=== PATIENT | female | born 1980 | race Caucasian/White ===

== ENCOUNTER 2019-11-15 11:54 | Outpatient (REF) | payer OTHER, SELFPAY ==
[2019-11-15 13:22] LABS: MANUAL DIFF FLAG NO
[2019-11-15 13:26] LABS: Basophils Absolute Auto 0.1 X10*3/uL (0.0-0.2); Basophils Percent Auto 0.7 % (0-2); Eosinophils Absolute Auto 0.1 X10*3/uL (0.0-0.4); Hematocrit 40.1 % (37-47); Hemoglobin 13.5 g/dl (12.0-16.0); Imm Gran Abs Auto 0.02 X10*3/uL (0.00-0.03); Imm Gran Pct Auto 0.3 % (0.0-0.4); Lymphocytes Absolute Auto 1.5 X10*3/uL (1.2-4.9); Lymphocytes Percent Auto 21.3 % (20-40); Mean Corpuscular HGB Conc 33.7 g/dl (31.0-35.0); Mean Corpuscular Hemoglobin 31.2 pg (27.0-33.0); Mean Corpuscular Volume 92.6 fL (80-98); Mean Platelet Volume 10.9 fL (9.4-12.3); Monocytes Absolute Auto 0.5 X10*3/uL (0.1-1.2); Monocytes Percent Auto 7.2 % (2-11); Neutrophils Absolute Auto 4.8 X10*3/uL (2.0-8.3); Neutrophils Percent Auto 69.5 % (45-73); Platelet Count 265 X10*3/uL (160-400); Red Blood Count 4.33 X10*6/uL (4.20-5.50); Red Cell Distribution Width 12.2 % (11.0-16.0); White Blood Count 6.8 X10*3/uL (4.8-10.8)
[2019-11-15 13:59] LABS: Alanine Aminotransferase 27 U/L (0-31); Albumin Level 4.3 g/dL (3.5-5.0); Alkaline Phosphatase 79 U/L (39-117); Anion Gap 11 (12-20); Aspartate Amino Transferase 21 U/L (5-31); Bilirubin Total 0.4 mg/dL (0.0-1.0); Blood Urea Nitrogen 13 mg/dL (9-16); Carbon Dioxide 27 mmol/L (22-29); Chloride 103 mmol/L (96-108); Cholesterol 149 mg/dL; Estimated Glomerular Filt Rate > 60; Glucose Fasting 94 mg/dL (60-99); HDL Cholesterol 52 mg/dL; LDL Cholesterol Calculated 85 mg/dl; Potassium 4.4 mmol/l (3.3-5.1); Sodium 137 mmol/L (135-145); Total Protein 6.9 g/dL (6.5-8.0); Triglycerides 60 mg/dL
[2019-11-15 14:02] LABS: Glucose Urine UA NEG (NEG); Leukocyte Esterase Urine NEG (NEG); Nitrite Urine NEG (NEG); Specific Gravity - Urine >= 1.030 (1.005-1.025); Urine Blood TRACE (NEG); Urine Ketones 5 MG/DL (NEG); Urine Protein TRACE MG/DL (NEG-TRACE)
[2019-11-15 14:04] LABS: Appearance Urine HAZY; Color Urine YELLOW
[2019-11-15 14:15] LABS: Amorphous Sediment Urine 1+ /LPF; Mucus Urine 3+ /LPF; Squamous Epithelial Cell Urine 2+ /LPF; WBC Urine 0 /HPF (0-4)
== END 2019-11-15 11:55 | disposition home or self-care (01) ==
LOC: HO.10HDL 11:54
PROVIDERS: Visit Provider Internal Medicine
DX: Z00.01 Encounter for general adult medical examination with abnormal findings (principal); Z13.9 Encounter for screening, unspecified; I10 Essential (primary) hypertension; E66.09 Other obesity due to excess calories; Z68.34 Body mass index [BMI] 34.0-34.9, adult; F33.9 Major depressive disorder, recurrent, unspecified; F41.1 Generalized anxiety disorder
CPT/HCPCS: 36415; 80053; 80061; 81001; 84443; 85025

== ENCOUNTER 2021-02-11 07:32 | Outpatient (REF) | payer OTHER, SELFPAY ==
[2021-02-11 11:49] LABS: Binax Now Covid-19 Ag Negative (Negative)
[2021-02-11 11:50] LABS: Binax Internal Control QC Valid
== END 2021-02-11 07:33 | disposition home or self-care (01) ==
LOC: HO.LAB 07:32
PROVIDERS: Visit Provider Internal Medicine
DX: Z20.822 Contact with and (suspected) exposure to COVID-19 (principal)
CPT/HCPCS: 36415; C9803

== ENCOUNTER 2021-02-24 01:19 | Emergency (ER) | payer OTHER, SELFPAY ==
--- NOTE | ~2021-02-24 | CT_ITS ---
EXAMINATION: CT ABDOMEN AND PELVIS WITHOUT CONTRAST CLINICAL INFORMATION: Right flank pain COMPARISON: 09/14/2009 TECHNIQUE: Multidetector volumetric imaging was performed from the superior aspect of the liver through the pubic symphysis. Sagittal and coronal reformatted images were obtained on the technologist's workstation. This CT examination was performed using dose optimization techniques as appropriate, variously including the following: *Automated exposure control *Adjustment of mA and/or kV according to patient size (this includes techniques or standardized protocols for targeted exams where dose is matched to indication/reason for exam; i.e. extremities or head) *Use of iterative reconstruction technique DLP: Not provided. FINDINGS: LUNG BASES: The visualized lung bases are unremarkable. LIVER, GALLBLADDER, AND BILIARY TREE: The liver is normal in size, shape, and attenuation. No focal hepatic lesion or biliary ductal dilatation is present. Cholecystectomy. PANCREAS: Unremarkable. SPLEEN: Unremarkable. ADRENAL GLANDS: Unremarkable. KIDNEYS AND URETERS: The kidneys are normal in size, shape, and attenuation. No hydronephrosis, hydroureter, or calculi seen. No perinephric stranding. BLADDER: Unremarkable. GASTROINTESTINAL TRACT: Status post Cal-en-Y gastric bypass. No dilated loops of bowel. No obstruction. No colonic wall thickening or acute inflammation. Moderate colonic stool burden. No free air or free fluid. Normal appendix. ABDOMINAL WALL: No significant hernia is appreciated. LYMPH NODES: Normal. VASCULAR: Unremarkable. PELVIC VISCERA: Anteverted uterus with IUD in place. No adnexal mass. OSSEOUS STRUCTURES: Unremarkable. CT/CT abdomen pelvis wo con IMPRESSION: No acute finding in the abdomen or pelvis. No inflammatory changes. No hydronephrosis or nephrolithiasis. Fleischner guidelines were followed.
[2021-02-24 01:24] VITALS: BP 143/72; PULSE 77; RESP 18; TEMP 36.8; O2SAT 100; BMI 41.5
[2021-02-24] MEDS: Ketorolac Tromethamine 30 MG/ML VIAL IVPUSH (03:14)
[2021-02-24] MEDS: 0.9 % Sodium Chloride 1,000 ML 999 ML IV (03:14)
[2021-02-24] MEDS: HYDROmorphone HCl 0.5 MG/0.5 ML SYRINGE IVPUSH (03:14)
[2021-02-24 03:22] LABS: MANUAL DIFF FLAG NO
[2021-02-24 03:24] LABS: Basophils Percent Auto 0.5 % (0-2); Eosinophils Absolute Auto 0.1 X10*3/uL (0.0-0.4); Eosinophils Percent Auto 1.4 % (0-4); Hematocrit 44.1 % (37.0-47.0); Hemoglobin 14.8 g/dl (12.0-16.0); Imm Gran Abs Auto 0.04 X10*3/uL (0.00-0.03); Imm Gran Pct Auto 0.5 % (0.0-0.4); Lymphocytes Absolute Auto 2.3 X10*3/uL (1.2-4.9); Lymphocytes Percent Auto 26.2 % (20-40); Mean Corpuscular HGB Conc 33.6 g/dl (31.0-35.0); Mean Corpuscular Hemoglobin 30.1 pg (27.0-33.0); Mean Corpuscular Volume 89.8 fL (80.0-98.0); Monocytes Absolute Auto 0.6 X10*3/uL (0.1-1.2); Monocytes Percent Auto 7.3 % (2-11); Neutrophils Absolute Auto 5.6 x10*3/uL (2.0-8.3); Neutrophils Percent Auto 64.1 % (45-73); Platelet Count 303 X10*3/uL (160-400); Red Blood Count 4.91 X10*6/uL (4.20-5.50); Red Cell Distribution Width 12.5 % (11.0-16.0); White Blood Count 8.6 X10*3/uL (4.8-10.8)
[2021-02-24 03:25] LABS: Appearance Urine CLEAR; Color Urine ORANGE; Glucose Urine UA 100 MG/DL (NEG); Leukocyte Esterase Urine NEG (NEG); Nitrite Urine POS (NEG); Specific Gravity - Urine 1.025 (1.005-1.025); UACC Culture Trigger YES; Urine Blood TRACE (NEG); Urine Ketones NEG (NEG); Urine Protein 1+ MG/DL (NEG-TRACE)
[2021-02-24 03:26] LABS: UPreg QC Valid YES; Urine Pregnancy NEGATIVE (NEGATIVE)
--- NOTE | 2021-02-24 03:26 | ED_ITS ---
HPI - General Adult General Chief complaint: Extremity Injury, Lower Stated complaint: R side weakness & pain post UTI treatment Time Seen by Provider: 02/24/21 02:45 History of Present Illness HPI narrative: Patient is a 40-year-old female presents today with having history of urinary tract infection now is having pain to the right flank area. Patient denies any bowel urinary incontinence. No history of kidney stone. No coughing or congestion or upper respiratory symptoms positive generalized malaise. Patient did receive her coronavirus vaccine. Patient from home. Pain is sharp nonradiating. No lower extremity pain. No bowel urinary incontinence. No focal weakness. Related Data Home Medications Medication Instructions Recorded Confirmed cholecalciferol (vitamin D3) 25 1,000 unit PO DAILY cap 11/19/19 06/09/20 mcg (1,000 unit) capsule zolpidem 12.5 mg tablet,extended 12.5 mg PO BEDTIME PRN 11/19/19 06/09/20 release,multiphase buspirone 10 mg tablet 10 mg PO DAILY tab 06/09/20 06/09/20 escitalopram oxalate 10 mg tablet 10 mg PO QAM 06/09/20 06/09/20 Previous Rx's Medication Instructions Recorded atenolol 25 mg tablet 25 mg PO DAILY #90 tab 09/21/20 lisinopril 10 mg tablet 10 mg PO DAILY #90 tab 09/21/20 phenazopyridine 200 mg tablet 200 mg PO TID 3 Days #9 tab 02/22/21 (Pyridium) sulfamethoxazole 800 1 tab PO BID 5 Days #10 tab 02/22/21 mg-trimethoprim 160 mg tablet (Bactrim DS) ibuprofen 400 mg tablet 400 mg PO Q6H PRN #20 tab 02/24/21 sulfamethoxazole 800 1 tab PO BID 5 Days #10 tab 02/24/21 mg-trimethoprim 160 mg tablet (Bactrim DS) Allergies Allergy/AdvReac Type Severity Reaction Status Date / Time No Known Allergies Allergy Verified 02/22/21 15:46 Review of Systems Review of Systems: Positive pain to the right flank area Yes all other systems are reviewed and are negative [facility] Past Medical History Attestation statement: The following information was validated with the patient. Medical History Anxiety, generalized Depression, major, recurrent Hypertension, essential IUD (intrauterine device) in place Obesity Surgical History H/O gastric bypass History of section History of colonoscopy Family History Family History Father HTN (hypertension) Hypothyroidism Diabetes mellitus Mother Colon cancer Maternal Grandfather Smoker Myocardial infarction Family/Other Ovarian cancer Sister Burn Social History Social History Alcohol intake: current Alcohol intake frequency: a few times a week Alcohol type: wine Patient Tobacco Use Status: Never used Tobacco Advance Directives: No Advance Directives Date on File: 11/15/19 Patient : No Physical Exam Vital Signs: Vital Signs: Last Vital Signs Temp 98.2 F 02/24/21 01:24 Pulse 77 02/24/21 01:24 Resp 18 02/24/21 01:24 BP 143/72 H 02/24/21 01:24 Pulse Ox 100 02/24/21 01:24 BMI result Body Mass Index 41.5 Appearance: Alert. Oriented X3. No acute distress. Eyes: Pupils equal, round and reactive to light. ENT: Pharynx normal. Neck: Normal inspection. Neck supple. No lymph nodes noted. No crepitus CVS: Normal heart rate and rhythm. Pulses normal. Normal S1 and S2 Respiratory: No respiratory distress. Breath sounds normal. No Wheezing. No rales Abdomen: Soft and nontender. No rigidity. No distention. good BS x4. No flank tenderness elicited on palpation. Skin: Skin warm and dry. Normal skin color. Normal skin turgor. Extremities: No lower extremity edema. Neurovascular intact to all extremities. No Lacerations. No Rash. Sensation in bilateral lower extremity intact. Neuro: Oriented X 3. No motor deficit. No sensory deficit. Moving all extermities. No slurred speech Medical Decision Making MDM Narrative Medical decision making narrative: Patient's electrolytes are normal. Lung function test is normal. Urine showed questionable infection likely partial treatment as patient has been on Bactrim for the last 2 days. Patient was given a prescription for 5 days worth of Bactrim. Question early pyelonephritis that is causing patient's symptoms and it is partially treated. A CT scan of the abdomen pelvis did not show any acute evidence of obstruction, abscess, perforation, kidney stones no diverticulitis. Patient's symptom improved. Will have patient continue Motrin for pain. Will have patient take 10 days worth of Bactrim. Close follow-up on an outpatient basis. Zofran for nausea. Patient's COVID test was negative, In stable condition. Lab Data Result diagrams: 02/24/21 03:10 02/24/21 03:10 Labs: Lab Results 02/24/21 02/24/21 02/24/21 Range/Units 03:10 03:10 03:10 WBC 8.6 (4.8-10.8) X10*3/uL RBC 4.91 (4.20-5.50) X10*6/uL Hgb 14.8 (12.0-16.0) g/dl Hct 44.1 (37.0-47.0) % MCV 89.8 (80.0-98.0) fL MCH 30.1 (27.0-33.0) pg MCHC 33.6 (31.0-35.0) g/dl RDW 12.5 (11.0-16.0) % Plt Count 303 (160-400) X10*3/uL MPV 10.0 (9.4-12.3) fL Immature Gran % (Auto) 0.5 H (0.0-0.4) % Neut % (Auto) 64.1 (45-73) % Lymph % (Auto) 26.2 (20-40) % [place] % (Auto) 7.3 (2-11) % Eos % (Auto) 1.4 (0-4) % Baso % (Auto) 0.5 (0-2) % Lymph # (Auto) 2.3 (1.2-4.9) X10*3/uL [place] # (Auto) 0.6 (0.1-1.2) X10*3/uL Eos # (Auto) 0.1 (0.0-0.4) X10*3/uL Baso # (Auto) 0.0 (0.0-0.2) X10*3/uL Abs Immat Gran (auto) 0.04 H (0.00-0.03) X10*3/uL Absolute Neuts (auto) 5.6 (2.0-8.3) x10*3/uL Absolute Nucleated RBC 0.000 (0.0-0.012) X10*3/uL Nucleated RBC % (auto) 0.0 (0.0-0.2) /100WBC Sodium 137 (135-145) mmol/L Potassium 4.2 (3.3-5.1) mmol/L Chloride 105 (96-108) mmol/L Carbon Dioxide 23 (22-29) mmol/L Anion Gap 13 (12-20) BUN 13 (9-16) mg/dL Creatinine 0.76 (0.5-1.4) mg/dL Estim Creat Clear Calc 106.5 Estimated GFR > 60 Random Glucose 93 (60-115) mg/dL Calcium 9.7 D (8.4-10.2) mg/dL Total Bilirubin 0.5 (0.0-1.0) mg/dL Direct Bilirubin 0.2 (0.0-0.5) mg/dL AST 12 D (5-31) U/L ALT 17 (0-31) U/L Alkaline Phosphatase 72 (39-117) U/L Total Protein 7.8 (6.5-8.0) g/dL Albumin 4.5 (3.5-5.0) g/dL Lipase 22 (8-78) U/L Urine Color Urine Appearance Urine pH (5.0-8.0) Ur Specific [place] (1.005-1.025) Urine Protein (NEG-TRACE) MG/DL Urine Glucose (UA) (NEG) MG/DL Urine Ketones (NEG) MG/DL Urine Blood (NEG) Urine Nitrite (NEG) Ur Leukocyte Esterase (NEG) Urine RBC (0) /HPF Urine WBC (0-4) /HPF Ur Squamous Epith Cells /LPF Amorphous Sediment /LPF Urine Bacteria /LPF Urine Mucus /LPF Urine Test (NEGATIVE) COVID-19 ([place]) Negative (Negative) COVID-19 Clin Com See Note 02/24/21 02/24/21 Range/Units 03:10 03:10 WBC (4.8-10.8) X10*3/uL RBC (4.20-5.50) X10*6/uL Hgb (12.0-16.0) g/dl Hct (37.0-47.0) % MCV (80.0-98.0) fL MCH (27.0-33.0) pg MCHC (31.0-35.0) g/dl RDW (11.0-16.0) % Plt Count (160-400) X10*3/uL MPV (9.4-12.3) fL Immature Gran % (Auto) (0.0-0.4) % Neut % (Auto) (45-73) % Lymph % (Auto) (20-40) % [place] % (Auto) (2-11) % Eos % (Auto) (0-4) % Baso % (Auto) (0-2) % Lymph # (Auto) (1.2-4.9) X10*3/uL [place] # (Auto) (0.1-1.2) X10*3/uL Eos # (Auto) (0.0-0.4) X10*3/uL Baso # (Auto) (0.0-0.2) X10*3/uL Abs Immat Gran (auto) (0.00-0.03) X10*3/uL Absolute Neuts (auto) (2.0-8.3) x10*3/uL Absolute Nucleated RBC (0.0-0.012) X10*3/uL Nucleated RBC % (auto) (0.0-0.2) /100WBC Sodium (135-145) mmol/L Potassium (3.3-5.1) mmol/L Chloride (96-108) mmol/L Carbon Dioxide (22-29) mmol/L Anion Gap (12-20) BUN (9-16) mg/dL Creatinine (0.5-1.4) mg/dL Estim Creat Clear Calc Estimated GFR Random Glucose (60-115) mg/dL Calcium (8.4-10.2) mg/dL Total Bilirubin (0.0-1.0) mg/dL Direct Bilirubin (0.0-0.5) mg/dL AST (5-31) U/L ALT (0-31) U/L Alkaline Phosphatase (39-117) U/L Total Protein (6.5-8.0) g/dL Albumin (3.5-5.0) g/dL Lipase (8-78) U/L Urine Color ORANGE A Urine Appearance CLEAR Urine pH 5.0 (5.0-8.0) Ur Specific [place] 1.025 (1.005-1.025) Urine Protein 1+ H (NEG-TRACE) MG/DL Urine Glucose (UA) 100 H (NEG) MG/DL Urine Ketones NEG (NEG) MG/DL Urine Blood TRACE (NEG) Urine Nitrite POS H (NEG) Ur Leukocyte Esterase NEG (NEG) Urine RBC 1-4 (0) /HPF Urine WBC 0-2 (0-4) /HPF Ur Squamous Epith Cells 2+ /LPF Amorphous Sediment TRACE /LPF Urine Bacteria 1+ /LPF Urine Mucus TRACE /LPF Urine Test NEGATIVE (NEGATIVE) COVID-19 ([place]) (Negative) COVID-19 Clin Com Discharge Plan Discharge Clinical Impression: Pyelonephritis Patient Disposition: Home, Self-Care Prescriptions: New sulfamethoxazole-trimethoprim [Bactrim DS] 800-160 mg tablet 1 tab PO BID 5 Days Qty: 10 RF: 0 ibuprofen 400 mg tablet 400 mg PO Q6H PRN (Reason: pain) Qty: 20 RF: 0 No Action lisinopril 10 mg tablet 10 mg PO DAILY Qty: 90 RF: 0 atenolol 25 mg tablet 25 mg PO DAILY Qty: 90 RF: 0 zolpidem 12.5 mg tablet,ext release multiphase 12.5 mg PO BEDTIME PRNRF: 0 cholecalciferol (vitamin D3) 25 mcg (1,000 unit) capsule 1,000 unit PO DAILY RF: 0 escitalopram oxalate 10 mg tablet 10 mg PO QAM RF: 0 buspirone 10 mg tablet 10 mg PO DAILY RF: 0 sulfamethoxazole-trimethoprim [Bactrim DS] 800-160 mg tablet 1 tab PO BID 5 Days Qty: 10 RF: 0 phenazopyridine [Pyridium] 200 mg tablet 200 mg PO TID 3 Days Qty: 9 RF: 0 Referrals: Gabi Varma MD [Primary Care Provider] - 2 days
[2021-02-24 03:34] LABS: Amorphous Sediment Urine TRACE /LPF; Bacteria Urine 1+ /LPF; Mucus Urine TRACE /LPF; Squamous Epithelial Cell Urine 2+ /LPF; UACC CULT YES; WBC Urine 0-2 /HPF (0-4)
[2021-02-24 03:42] LABS: COVID-19 Test Negative (Negative)
[2021-02-24 03:43] LABS: Alanine Aminotransferase 17 U/L (0-31); Albumin Level 4.5 g/dL (3.5-5.0); Alkaline Phosphatase 72 U/L (39-117); Anion Gap 13 (12-20); Aspartate Amino Transferase 12 U/L (5-31); Bilirubin Direct 0.2 mg/dL (0.0-0.5); Bilirubin Total 0.5 mg/dL (0.0-1.0); Blood Urea Nitrogen 13 mg/dL (9-16); Calcium 9.7 mg/dL (8.4-10.2); Carbon Dioxide 23 mmol/L (22-29); Chloride 105 mmol/L (96-108); Creatinine Clr Calc Pharmacy 106.5; Estimated Glomerular Filt Rate > 60; Glucose Random 93 mg/dL (60-115); Lipase 22 U/L (8-78); Potassium 4.2 mmol/L (3.3-5.1); Sodium 137 mmol/L (135-145); Total Protein 7.8 g/dL (6.5-8.0)
[2021-02-24 05:04] VITALS: BP 123/88; PULSE 76; RESP 18; O2SAT 98
== END 2021-02-24 05:58 | disposition home or self-care (01) ==
PROVIDERS: Emergency Provider Emergency Medicine Emergency Medical Services; PCP Internal Medicine
DX: N12 Tubulo-interstitial nephritis, not specified as acute or chronic (principal); R10.9 Unspecified abdominal pain; Z20.822 Contact with and (suspected) exposure to COVID-19; Z79.899 Other long term (current) drug therapy
CPT/HCPCS: 74176; 80048; 80076; 81001; 81025; 83690; 85025; 87086; 87635; 96361; 96374; 96375; 99284; J1170; J1885

== ENCOUNTER 2021-09-13 18:15 | Emergency (ER) | payer OTHER, SELFPAY ==
[2021-09-13 18:46] VITALS: BP 141/79; PULSE 85; RESP 16; TEMP 37.7; O2SAT 97; BMI 41.5
--- NOTE | 2021-09-14 00:03 | ED.SKABFB ---
HPI - Skin/Abscess/Foreign Bdy General Chief complaint: Urogenital-Female Stated complaint: pain in groin area and moving into leg Time Seen by Provider: 09/13/21 23:40 Source: patient Mode of arrival: ambulatory Limitations: no limitations History of Present Illness HPI narrative: Patient presents emergency department for evaluation of a lump to the left groin with pain and swelling x4 days. She states that she was swimming the ocean and noticed the lump later that night. Since earlier today the area has opened and has been draining yellow/clear fluid. It is very tender to touch. Denies fevers, chills. Denies any additional skin lesions or lumps. Denies prior history of MRSA. Related Data Home Medications Medication Instructions Recorded Confirmed cholecalciferol (vitamin D3) 25 1,000 unit PO DAILY 11/19/19 06/09/20 mcg (1,000 unit) capsule zolpidem 12.5 mg tablet,extended 12.5 mg PO BEDTIME PRN 11/19/19 06/09/20 release,multiphase buspirone 10 mg tablet 10 mg PO DAILY 06/09/20 06/09/20 escitalopram oxalate 10 mg tablet 10 mg PO QAM 06/09/20 06/09/20 Previous Rx's Medication Instructions Recorded atenolol 25 mg tablet 25 mg PO DAILY #90 tabs 09/21/20 lisinopril 10 mg tablet 10 mg PO DAILY #90 tabs 09/21/20 phenazopyridine 200 mg tablet 200 mg PO TID 3 days #9 tabs 02/22/21 (Pyridium) sulfamethoxazole 800 1 tab PO BID 5 days #10 tabs 02/22/21 mg-trimethoprim 160 mg tablet (Bactrim DS) ibuprofen 400 mg tablet 400 mg PO Q6H PRN pain #20 tabs 02/24/21 ondansetron 4 mg disintegrating 4 mg PO TID PRN nausea and 02/24/21 tablet vomiting 5 days #10 tabs sulfamethoxazole 800 1 tab PO BID 5 days #10 tabs 02/24/21 mg-trimethoprim 160 mg tablet (Bactrim DS) cephalexin 500 mg capsule 500 mg PO QID 7 days #28 caps 09/14/21 Allergies Allergy/AdvReac Type Severity Reaction Status Date / Time No Known Allergies Allergy Verified 09/13/21 18:50 Review of Systems Review of Systems: Constitutional :? Denies history of same, Denies any other sites involved, Denies IV drug use, Denies history of MRSA, Denies swollen glands, Denies injury, Denies Fever, Denies Chills, + Sig Pain, Denies Systemic symptoms Cardiovascular : No Chest Pain, No SOB Respiratory : No Dyspnea Gastrointestinal : No abdominal pain Musculoskeletal : No Joint Swelling Skin : + abscess with surrounding erythema, No skin laceration, No Foreign bodies, No spreading rash, Denies bites, Denies discharge, Neuro : No Weakness, No Numbness/tingling Yes all other systems are reviewed and are negative [facility] Past Medical History Attestation statement: The following information was validated with the patient. Source: old records reviewed Medical History Anxiety, generalized Depression, major, recurrent Hypertension, essential IUD (intrauterine device) in place Obesity Surgical History H/O gastric bypass History of section History of colonoscopy Family History Family History Father HTN (hypertension) Hypothyroidism Diabetes mellitus Mother Colon cancer Maternal Grandfather Smoker Myocardial infarction Family/Other Ovarian cancer Sister Burn Social History Social History Alcohol intake: current Alcohol intake frequency: a few times a week Alcohol type: wine Patient Tobacco Use Status: Never used Tobacco Advance Directives: Yes Advance Directives on File: Yes Advance Directives Date on File: 11/15/19 Physical Exam Vital Signs: Vital Signs: Last Vital Signs Temp 99.8 F 09/14/21 00:17 Pulse 76 09/14/21 00:17 Resp 17 09/14/21 00:17 BP 138/72 09/14/21 00:17 Pulse Ox 96 09/14/21 00:17 O2 Del Method 09/14/21 00:17 BMI result Body Mass Index 41.5 Appearance: Alert.?Oriented to person, place and time. No acute distress.?Normal affect. Eyes: Pupils equal, round and reactive to light.? ENT: Pharynx normal.?? Neck: Normal inspection.? Neck supple.?? CVS: Heart sounds normal. Normal heart rate and rhythm.? Pulses normal.?? Respiratory: No respiratory distress.? Lung sounds clear to auscultation bilaterally?? Abdomen: Soft and non-tender. Skin: Skin warm and dry.? Normal skin color.? Left groin with opened abscess weeping clear fluid,, surrounding erythema, warmth, induration Extremities: No lower extremity edema.? Neuro: Moves all extremities spontaneously. Sensation intact bilaterally. No motor deficits Ambulates with normal steady gait. Course Course Course Narrative: Patient is a 41-year-old female presents emergency department for evaluation of a painful lump to the left groin. History physical exam consistent with abscess, already open and draining. No systemic toxicity, and patient appears uncomfortable but vital signs are stable and in no apparent distress. There is surrounding cellulitis. Not consistent with necrotizing fasciitis, myositis, fourniers gangrene. No labs or imaging indicated at this time. Will discharge home with course of oral antibiotics and symptomatic treatment instructions. Discussed reasons to return to the emergency department, and follow-up with primary care provider. Patient agreeable with plan of care. MDM - Skin/Abscess/Foreign Bdy Medical Records Attestation: I reviewed the patient's medical records. Discharge Plan Discharge Clinical Impression: Abscess Patient Disposition: Home, Self-Care Instructions: Abscess (ED), Abscess Follow-up (ED) Additional Instructions: You have been given antibiotics cephalexin and doxycycline, please complete this entire course as prescribed. As we discussed, the area is going to likely continue to drain. You may apply warm moist compresses to the area a few times daily to aid in any additional drainage Try to keep the surrounding skin dry, by using a gauze to absorb the drainage. If you develop fevers, chills, severe worsening pain, redness, swelling this should be re-evaluated. Please contact your primary care provider to arrange for a follow-up visit within 2-3 days. Prescriptions: New cephalexin 500 mg capsule 500 mg PO QID 7 Days Qty: 28 0RF No Action lisinopril 10 mg tablet 10 mg PO DAILY Qty: 90 0RF atenolol 25 mg tablet 25 mg PO DAILY Qty: 90 0RF sulfamethoxazole-trimethoprim [Bactrim DS] 800-160 mg tablet 1 tab PO BID 5 Days Qty: 10 0RF ibuprofen 400 mg tablet 400 mg PO Q6H PRN (Reason: pain) Qty: 20 0RF ondansetron 4 mg tablet,disintegrating 4 mg PO TID PRN (Reason: nausea and vomiting) 5 Days Qty: 10 0RF zolpidem 12.5 mg tablet,ext release multiphase 12.5 mg PO BEDTIME PRN cholecalciferol (vitamin D3) 25 mcg (1,000 unit) capsule 1,000 unit PO DAILY Label Comments: 2 tablets escitalopram oxalate 10 mg tablet 10 mg PO QAM buspirone 10 mg tablet 10 mg PO DAILY sulfamethoxazole-trimethoprim [Bactrim DS] 800-160 mg tablet 1 tab PO BID 5 Days Qty: 10 0RF phenazopyridine [Pyridium] 200 mg tablet 200 mg PO TID 3 Days Qty: 9 0RF Stand Alone Forms: Work/School Release Interventions: ED Discharge Assessment Last Done: 09/14/21 00:18 Discharge Date/Time: 09/14/21 00:19
[2021-09-14] MEDS: cephALEXin 500 MG CAPSULE PO (00:14)
[2021-09-14 00:17] VITALS: BP 138/72; PULSE 76; RESP 17; TEMP 37.7; O2SAT 96
== END 2021-09-14 00:19 | disposition home or self-care (01) ==
PROVIDERS: Emergency Provider Emergency Medicine; PCP Internal Medicine
DX: L02.214 Cutaneous abscess of groin (principal); R10.32 Left lower quadrant pain; E66.9 Obesity, unspecified; Z68.41 Body mass index [BMI] 40.0-44.9, adult
CPT/HCPCS: 99282; 99283

== ENCOUNTER 2022-01-03 08:35 | Outpatient (REF) | payer OTHER, SELFPAY ==
[2022-01-03 11:16] LABS: MANUAL DIFF FLAG NO
[2022-01-03 11:44] LABS: Basophils Absolute Auto 0.1 X10*3/uL (0.0-0.2); Basophils Percent Auto 0.9 % (0-2); Eosinophils Absolute Auto 0.1 X10*3/uL (0.0-0.4); Eosinophils Percent Auto 1.5 % (0-4); Hematocrit 40.5 % (37.0-47.0); Hemoglobin 13.4 g/dl (12.0-16.0); Imm Gran Abs Auto 0.02 X10*3/uL (0.00-0.03); Imm Gran Pct Auto 0.3 % (0.0-0.4); Lymphocytes Absolute Auto 1.7 X10*3/uL (1.2-4.9); Mean Corpuscular HGB Conc 33.1 g/dl (31.0-35.0); Mean Corpuscular Hemoglobin 29.9 pg (27.0-33.0); Mean Corpuscular Volume 90.4 fL (80.0-98.0); Mean Platelet Volume 11.1 fL (9.4-12.3); Monocytes Absolute Auto 0.5 X10*3/uL (0.1-1.2); Monocytes Percent Auto 6.8 % (2-11); Neutrophils Absolute Auto 4.3 x10*3/uL (2.0-8.3); Neutrophils Percent Auto 64.5 % (45-73); Platelet Count 267 X10*3/uL (160-400); Red Blood Count 4.48 X10*6/uL (4.20-5.50); Red Cell Distribution Width 13.2 % (11.0-16.0); White Blood Count 6.6 X10*3/uL (4.8-10.8)
[2022-01-03 13:08] LABS: Alanine Aminotransferase 14 U/L (0-31); Albumin Level 4.3 g/dL (3.5-5.0); Alkaline Phosphatase 67 U/L (39-117); Anion Gap 12 (12-20); Aspartate Amino Transferase 12 U/L (5-31); Bilirubin Total 0.5 mg/dL (0.0-1.0); Blood Urea Nitrogen 14 mg/dL (9-16); Calcium 9.6 mg/dL (8.4-10.2); Carbon Dioxide 26 mmol/L (22-29); Chloride 102 mmol/L (96-108); Cholesterol 189 mg/dL; Estimated Glomerular Filt Rate > 60; Glucose Fasting 88 mg/dL (60-99); HDL Cholesterol 50 mg/dL; LDL Cholesterol Calculated 123 mg/dl; Potassium 4.7 mmol/L (3.3-5.1); Sodium 135 mmol/L (135-145); TSH reflex Free T4 0.99 uIU/mL (0.32-4.0); Total Protein 7.1 g/dL (6.5-8.0); Triglycerides 83 mg/dL
[2022-01-08 15:52] LABS: Vitamin D 25-OH, D2 <4 ng/mL; Vitamin D 25-OH, D3 32 ng/mL; Vitamin D 25-OH, Total 32 ng/mL (30-100)
== END 2022-01-03 08:36 | disposition home or self-care (01) ==
LOC: HO.10HDL 08:35
PROVIDERS: Visit Provider Internal Medicine
DX: I10 Essential (primary) hypertension (principal); F41.1 Generalized anxiety disorder; F33.9 Major depressive disorder, recurrent, unspecified; G47.9 Sleep disorder, unspecified; E66.09 Other obesity due to excess calories
CPT/HCPCS: 36415; 80053; 80061; 82306; 84443; 85025

== ENCOUNTER 2022-02-02 13:05 | Outpatient (REF) | payer OTHER, SELFPAY ==
--- NOTE | ~2022-02-02 | MM_ITS ---
EXAMINATION: MM SCREENING DIGITAL BREAST TOMOSYNTHESIS, BILATERAL CLINICAL INFORMATION: Screening. Asymptomatic. The lifetime risk of breast cancer based on the Tyrer-Cuzick Model is 12.3%. COMPARISON: Mammography: None TECHNIQUE: Digital breast tomosynthesis is performed in both the craniocaudal and mediolateral oblique views along with computer-aided detection (CAD). Synthesized 2D images are generated from the tomosynthesis. FINDINGS: There are scattered areas of fibroglandular density (ACR BI-RADS breast composition Category b). There are no significant masses, abnormal calcifications, or other abnormalities. MM/MM tomosynthesis screening BI IMPRESSION: No mammographic evidence of malignancy. ASSESSMENT: BI-RADS 1: Negative RECOMMENDATION: Routine annual mammography screening. This patient's information was entered into a reminder system with a target due date for their next mammogram.
== END 2022-02-02 13:06 | disposition home or self-care (01) ==
LOC: HO.MAMMO 13:05
PROVIDERS: Visit Provider Internal Medicine
DX: Z12.31 Encounter for screening mammogram for malignant neoplasm of breast (principal)
CPT/HCPCS: 77063; 77067

== ENCOUNTER → 2022-05-02 10:57 | Outpatient (BNVA) | payer OTHER, SELFPAY | PROVIDERS: PCP Internal Medicine; Referring Provider Internal Medicine; Visit Provider Physician Assistant | DX: Z13.89 Encounter for screening for other disorder (principal) ==

== ENCOUNTER 2022-07-13 06:55 | Day surgery (SDC) | payer OTHER, SELFPAY ==
[2022-07-11 14:23] VITALS: BMI 37.6
--- NOTE | 2022-07-12 14:06 | P.CONAN_ITS ---
Documented by User: Josi Martell NP 07/12/22 14:06 HPI - Anesthesia Eval Consult details Narrative: 42yo F for Colonoscopy PMFSH Active Problems Active Problems: All Active Problems (Updated 05/02/22 @ 11:26 by Donna Claire PA-C) Family history of GI tract cancer (Acute) Encounter for general adult medical examination with abnormal findings (Acute) Colon cancer screening (Acute) Obesity due to excess calories (Acute) Difficulty sleeping (Acute) Urinary tract infection (Acute) Foul smelling urine (Acute) IUD (intrauterine device) in place (Acute) Obesity (Acute) Depression, major, recurrent (Acute) Anxiety, generalized (Acute) Hypertension, essential (Acute) Dog bite (Acute) Past Medical History Medical History Anxiety, generalized Depression, major, recurrent Hypertension, essential IUD (intrauterine device) in place Obesity Family History Family History Father HTN (hypertension) Hypothyroidism Diabetes mellitus Mother Colon cancer Maternal Grandfather Smoker Myocardial infarction Family/Other Ovarian cancer Sister Burn Maternal Uncle Mental health disorder Surgical History Surgical History H/O gastric bypass History of section History of colonoscopy Social History Social History (Updated 05/02/22 @ 11:27 by Donna Claire PA-C) Household Members Other:: - 2 kids Housing: House Alcohol intake: current Alcohol intake frequency: a few times a week Alcohol type: wine Patient Tobacco Use Status: Never used Tobacco e-Cigarette/Vaping Use: Never Used Second Hand Smoke Exposure: No Use of substances other than those prescribed or required for medical reasons: No Are you DNR?: No Advance Directives: No Advance Directives Information Provided: Yes Advance Directives Date on File: 11/15/19 Patient : No (UCG pending) service: No Current occupational status: unemployed 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 Cognitive needs: No Hearing needs: No Vision needs: No Meds Allergies Allergy/AdvReac Type Severity Reaction Status Date / Time No Known Allergies Allergy Verified 05/02/22 11:10 Home Medications Medication Instructions Recorded Confirmed Last Taken Type cholecalciferol (vitamin D3) 25 1,000 unit PO DAILY 11/19/19 05/02/22 Unknown History mcg (1,000 unit) capsule zolpidem 12.5 mg tablet,extended 12.5 mg PO BEDTIME PRN 11/19/19 05/02/22 Unknown History release,multiphase escitalopram oxalate 20 mg tablet 20 mg PO QAM 11/19/21 05/02/22 Unknown History methylphenidate HCl 18 mg 18 mg PO QAM 11/19/21 05/02/22 Unknown History tablet,extended release 24 hr trazodone 300 mg tablet 150 - 300 mg PO BEDTIME 11/19/21 05/02/22 Unknown History Exam Exam Date and Time: July 12, 2022 1406 Height,Weight and Vital Signs: Height 5 ft 1 in Weight 90.265 kg Assessment and Plan Assessment Anesthesia Assessment: Chart Reviewed Documented by User: Kiley Oliveira MD 07/13/22 08:07 [facility] Past Medical History Medical History Anxiety, generalized Depression, major, recurrent Hypertension, essential IUD (intrauterine device) in place Obesity Family History Family History Father HTN (hypertension) Hypothyroidism Diabetes mellitus Mother Colon cancer Maternal Grandfather Smoker Myocardial infarction Family/Other Ovarian cancer Sister Burn Maternal Uncle Mental health disorder Family history of problems with anesthesia: No Surgical History Surgical History H/O gastric bypass History of section History of colonoscopy History of Problems with Anesthesia: No Social History Social History (Updated 05/02/22 @ 11:27 by Donna Claire PA-C) Household Members Other:: - 2 kids Housing: House Alcohol intake: current Alcohol intake frequency: a few times a week Alcohol type: wine Patient Tobacco Use Status: Never used Tobacco e-Cigarette/Vaping Use: Never Used Second Hand Smoke Exposure: No Use of substances other than those prescribed or required for medical reasons: No Are you DNR?: No Advance Directives: No Advance Directives Information Provided: Yes Advance Directives Date on File: 11/15/19 Patient : No (UCG pending) service: No Current occupational status: unemployed 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 Cognitive needs: No Hearing needs: No Vision needs: No Meds Allergies Allergy/AdvReac Type Severity Reaction Status Date / Time No Known Allergies Allergy Verified 05/02/22 11:10 Home Medications Medication Instructions Recorded Confirmed Last Taken Type cholecalciferol (vitamin D3) 25 1,000 unit PO DAILY 11/19/19 05/02/22 Unknown History mcg (1,000 unit) capsule zolpidem 12.5 mg tablet,extended 12.5 mg PO BEDTIME PRN 11/19/19 05/02/22 Unknown History release,multiphase escitalopram oxalate 20 mg tablet 20 mg PO QAM 11/19/21 05/02/22 Unknown History methylphenidate HCl 18 mg 18 mg PO QAM 11/19/21 05/02/22 Unknown History tablet,extended release 24 hr trazodone 300 mg tablet 150 - 300 mg PO BEDTIME 11/19/21 05/02/22 Unknown History Exam Airway Mallampati Class: II (missing multiple teeth, nothing loose) TM Dist: >3cm Neck ROM: Full Heart: rrr Lungs: cta Assessment and Plan Assessment Anesthesia Assessment: Anesthesia Plan Discussed Final Anesthetic Review Family History of Problems with Anesthesia: No History of Problems with Anesthesia: No NPO: Yes ASA Class: III Final Preanesthetic Review: No Changes in Pt Med Stat, Meds/Allgs Chart Reviewed and Consent Obtained/Reviewed Patient Risk: Intermediate Procedure Risk: Intermediate Anesthetic Plan Anesthetic Plan: MAC: Disposition: Standard PACU
[2022-07-13 07:17] LABS: UPreg QC Valid YES; Urine Pregnancy NEGATIVE (NEGATIVE)
[2022-07-13 07:18] VITALS: BMI 38.7
[2022-07-13 07:27] VITALS: BP 132/83; PULSE 70; RESP 16; O2SAT 98
[2022-07-13] MEDS: Lactated Ringers 1,000 ML 100 ML IVCONT (07:43)
--- NOTE | 2022-07-13 08:17 | MHC.SHP ---
Pre-Procedural Eval Section A Date of Service: 07/13/22 Section B Chief Complaint: screening Details of Present Illness: FH of CRC Relevant Family History (Specify if Yes): Yes Relevant Social History: None Present Medications: see Short Stay Collaborative assessment Medical History: Significant History (Anxiety, generalized Depression, major, recurrent Hypertension, essential IUD (intrauterine device) in place Obesity) History of Previous Operations: Relevant previous surgery/procedure and date(s) (H/O gastric bypass History of section History of colonoscopy) Allergies: Allergies Allergy/AdvReac Type Severity Reaction Status Date / Time No Known Allergies Allergy Verified 05/02/22 11:10 Review of Systems Sugical H&P ROS: Negative: Constitution, Cardiovascular, Respiratory, Neurological, Psychiatric, Hem-Onc, Allergic/Immunologic, Gastrointestinal, Genitourinary, Musculoskeletal, Integumentary, Endocrine and Eyes/Ears/Nose/Throat Exam Surgical H&P Exam: Normal: HEENT, Normal: Heart, Normal: Lungs, Normal: Extremities, Normal: Abdomen, Normal: Skin and Normal: Neurological Plan Diagnosis/Plan: Unchanged I have reviewed the history and physical and performed a pertinent physical examination on my patient. No changes have occurred unless specified. Time Spent With Patient Time: Total time managing care of this patient today ____ minutes.
--- NOTE | 2022-07-13 08:19 | W.PM.OPN ---
Operative Note Operative Note Date of Service: 07/13/22 Narrative: Operative Information Procedure Description: Colonoscopy Indication: screening Anesthesia: MAC COLONOSCOPY Instrument: Olympus variable stiffness pediatric scope 190L Colonoscopy Monitoring: Vital signs and clinical assessment, continuous EKG monitoring, Pulse oximetry, Carbon Dioxide monitoring and blood pressure monitoring were done throughout the procedure. Colon withdrawal time was 7 minutes. Procedure: The patient was placed in the left lateral decubitis position and pre-procedure medications were administered. After a digital rectal examination of the ano-rectum, the video colonoscope was inserted into the rectum and advanced through the colon to the cecum/TI. The colonoscope was slowly withdrawn in a retrograde panoramic fashion and the colon mucosa was carefully examined including a retroflexed view of the rectum. Findings and interventions are described below. Procedure Difficulty: easy Findings: Terminal Ileum-normal Cecum:normal Ascending Colon: 5-7 mm sessile polyp removed with cold snare Transverse Colon -normal Descending Colon:normal Sigmoid Colon: normal Rectum: Retroflexion with small internal hemorrhoids, grade I Anorectum - normal Colon preparation: [place] Bowel Preparation Scale Right colon; 2 Transverse colon: 2 Left colon; 2 (0 = Unprepared colon segment with mucosa not seen due to solid stool that cannot be cleared. 1 = Portion of mucosa of the colon segment seen, but other areas of the colon segment not well seen due to staining, residual stool and/or opaque liquid. 2 = Minor amount of residual staining, small fragments of stool and/or opaque liquid, but mucosa of colon segment seen well. 3 = Entire mucosa of colon segment seen well with no residual staining, small fragments of stool or opaque liquid) Impression and Post Procedure Diagnosis: polyp internal hemorrhoids Plan: High fiber diet leaflet Avoid straining at stool, epsom salts and sitz bath, anusol supps or cream Repeat Colonoscopy in 5 years due to Fh and polyp today or earlier if clinically indicated Above findings were reviewed with the patient and relevant handouts were provided if indicated.
[2022-07-13 08:47] VITALS: BP 108/63; PULSE 92; RESP 16; TEMP 37; O2SAT 98
[2022-07-13 09:02] VITALS: BP 120/72; PULSE 66; RESP 16; O2SAT 98
[2022-07-13 09:17] VITALS: BP 122/72; PULSE 62; RESP 16; TEMP 37; O2SAT 98
== END 2022-07-13 10:05 | disposition home or self-care (01) ==
PROVIDERS: Nurse Practitioner; PCP Internal Medicine; Visit Provider Internal Medicine Gastroenterology
PROC: 0DJD8ZZ Inspection of Lower Intestinal Tract, Via Natural or Artificial Opening Endoscopic (ICD-10-PCS; CPT 45378; principal; 2022-07-13 08:30)
DX: Z12.11 Encounter for screening for malignant neoplasm of colon (principal); Z80.0 Family history of malignant neoplasm of digestive organs; D12.2 Benign neoplasm of ascending colon; K64.0 First degree hemorrhoids; I10 Essential (primary) hypertension; F33.9 Major depressive disorder, recurrent, unspecified; F41.1 Generalized anxiety disorder; E66.9 Obesity, unspecified; Z68.37 Body mass index [BMI] 37.0-37.9, adult; Z79.899 Other long term (current) drug therapy; Z98.84 Bariatric surgery status; Z97.5 Presence of (intrauterine) contraceptive device
CPT/HCPCS: 45385; 81025; 88305

== ENCOUNTER 2022-07-21 08:03 | Outpatient (REF) | payer OTHER, SELFPAY ==
[2022-07-21 11:17] LABS: Alanine Aminotransferase 17 U/L (0-31); Albumin Level 4.3 g/dL (3.5-5.0); Alkaline Phosphatase 80 U/L (39-117); Anion Gap 14 (12-20); Aspartate Amino Transferase 16 U/L (5-31); Bilirubin Total 0.8 mg/dL (0.0-1.0); Blood Urea Nitrogen 8 mg/dL (9-16); Calcium 9.4 mg/dL (8.4-10.2); Carbon Dioxide 25 mmol/L (22-29); Chloride 103 mmol/L (96-108); Estimated Glomerular Filt Rate > 60; Glucose Random 90 mg/dL (60-115); Potassium 4.1 mmol/L (3.3-5.1); Sodium 138 mmol/L (135-145); Total Protein 7.4 g/dL (6.5-8.0)
== END 2022-07-21 08:04 | disposition home or self-care (01) ==
LOC: HO.10HDL 08:03
PROVIDERS: Visit Provider Internal Medicine
DX: I10 Essential (primary) hypertension (principal)
CPT/HCPCS: 36415; 80053

== ENCOUNTER → 2022-07-25 13:28 | Outpatient (BNVA) | payer OTHER, SELFPAY | PROVIDERS: PCP Internal Medicine; Visit Provider Physician Assistant ==

== ENCOUNTER 2023-01-20 10:47 | Outpatient (AMB) | payer OTHER, SELFPAY ==
[2023-01-20 10:52] VITALS: BP 134/86; PULSE 93; O2SAT 99; BMI 36.2
--- NOTE | 2023-01-20 10:52 | MHC.PC.OV ---
Vital Signs 01/20/23 10:52 Height 5 ft 1 in Weight 191 lb 6 oz BMI 36.2 BP 134/86 Blood Pressure Location Rt brachial Position Sitting Pulse 93 Pulse Source Pulse Oximeter Pulse Oximetry (%) 99 Oxygen Delivery Method Room Air Intake Visit Reasons: Annual PE Allergies No Known Allergies Allergy (Verified 01/20/23 10:52) Medication List - Last Reconciled 01/20/23 by Gabi Varma MD atenolol 25 mg PO DAILY cholecalciferol (vitamin D3) 1,000 units PO DAILY fluoxetine 20 mg PO DAILY lisinopril 10 mg PO DAILY methylphenidate HCl ER 18 mg PO QAM quetiapine 25 mg PO BEDTIME zolpidem ER 12.5 mg PO BEDTIME PRN Tobacco use date assessed: 07/22/22 Dental Screening Dental Screen Date: 01/20/23 Did you have a dental visit in the last 12 months?: Yes Did you have a dental problem in the last 6 months where you did not have access to dental care?: No Was dental information given to patient?: Patient has dentist HPI Annual PE HPI Details Patient is a 42-year-old female came in today for physical examination Mammogram appointment is coming up Patient have [facility], she has Mirena Blood pressure is stable, patient is on atenolol 25 mg and lisinopril 10 mg, tolerating medications Blood test is due order placed, order also placed for next time Patient will return in 6 months for follow-up [facility]LY [facility], [facility] Medical History IUD (intrauterine device) in place Obesity Depression, major, recurrent Anxiety, generalized Hypertension, essential Surgical History History of colonoscopy History of section H/O gastric bypass Family History Father HTN (hypertension) Hypothyroidism Diabetes mellitus Mother Colon cancer Maternal Grandfather Smoker Myocardial infarction Family/Other Ovarian cancer Sister Burn Maternal Uncle Mental health disorder Social History Household Members Other:: - 2 kids Housing: House Alcohol intake: current Alcohol intake frequency: a few times a week Alcohol type: wine Patient Tobacco Use Status: Never used Tobacco e-Cigarette/Vaping Use: Never Used Second Hand Smoke Exposure: No Advance Directives Date on File: 11/15/19 service: No Current occupational status: unemployed 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 1. Little interest or pleasure in doing things: more than half the days 2. Feeling down, depressed, or hopeless: not at all 3. Trouble falling or staying asleep, or sleeping too much: nearly every day 4. Feeling tired or having little energy: more than half the days 5. Poor appetite or overeating: not at all 6. Feeling bad about yourself - or that you are a failure or have let yourself or your family down: not at all 7. Trouble concentrating on things, such as reading the newspaper or watching television: more than half the days 8. Moving or speaking so slowly that other people could have noticed. Or the opposite - being so fidgety or restless that you have been moving around a lot more than usual: not at all 9. Thoughts that you would be better off or of hurting yourself in some way: not at all Total score: 9 Depression Screening Interpretation: Positive Depression Screening Follow-up: Existing condition and In treatment Depression Screening Done: Yes 25982 - PHQ-9 Billing: Yes Source: Developed by Drs. Bernardino White, Hitesh Callahan and colleagues, with an educational shashank from [employer]. Thrive Questionnaire Date Thrive assessed: 11/19/21 AUDIT C Alcohol Use Questionnaire (AUDIT-C) 1. How often do you have a drink containing alcohol?: Monthly or less 2. How many drinks containing alcohol do you have on a typical day when you are drinking?: 1 or 2 3. How often do you have six or more drinks on one occasion?: Never Total Score: 1 Score Reviewed/Action Taken: Yes MELVA-7 AMB Questionnaire MELVA-7 Date MELVA - 7 assessed: 11/19/21 Source: Developed by Drs. Bernardino White, Hitesh Callahan and colleagues, with an educational shashank from [employer] Review of Systems Const Denies chills, Denies fever(s) and Denies headache(s) Eyes Denies blurry vision ENT Denies headache(s), Denies nasal discharge, Denies nasal obstruction, Denies odynophagia and Denies sinus pain Card Denies chest pain at rest and Denies chest pain with activity Resp Denies cough and Denies hemoptysis GI Denies diarrhea, Denies odynophagia, Denies vomiting and Denies hematemesis Reports as per HPI Musc Denies abnormal gait Skin/Breast Reports as per HPI Neuro Denies Neuro-related abnormal movements, Denies Abnormal speech present, Denies abnormal gait, Denies headache(s) and Denies Sensory deficit (Neuro) Psych Denies mood swings and Denies paranoia Endo Reports as per HPI Donta/Lymph Reports as per HPI Aller/Immun Reports as per HPI Physical exam (Primary Care) Vital Signs: Last Vital Signs Pulse 93 01/20/23 10:52 BP 134/86 01/20/23 10:52 Pulse Ox 99 01/20/23 10:52 Oxygen Delivery Method Room Air 01/20/23 10:52 BMI result Body Mass Index 36.2 Tobacco/Smoking Status: Tobacco use Status Tobacco use date assessed 07/22/22 01/20/23 10:54 Patient Tobacco Use Status Never used Tobacco 01/20/23 10:54 e-Cigarette/Vaping Use Never Used 01/20/23 10:54 PHQ-9: PHQ-9 Score PHQ-9: Total score 9 01/20/23 15:21 Depression Screening Interpretation: Positive Depression Screening Follow-up: Existing condition and In treatment Thrive Assessment: Date of Thrive Assessment Date Thrive assessed 11/19/21 01/20/23 10:54 Const General: cooperative, comfortable and no acute distress Orientation/consciousness: patient oriented x3 HENMT Head: Yes normocephalic and Yes atraumatic Eyes General: appearance normal, both eyes and all related structures Pupils: Equal, round and reactive pupils present EOM: EOMs intact bilaterally Neck Neck: Yes supple and No lymphadenopathy Thyroid: Thyroid normal Lymphatic: no lymphadenopathy noted Chest Breast/axilla palpation: normal palpation of the breasts Resp Effort & Inspection: normal respiratory effort and able to speak in complete sentences Auscultation: clear to auscultation bilaterally Cardio Heart sounds: S1 normal heart sound present and S2 normal heart sound present GI Palpation (GI): Soft to palpation and nontender Auscultation: normal bowel sounds General: Yes no CVA tenderness Back/Spine/Pelvis Back: no CVA tenderness Skin General skin exam: elasticity normal and turgor normal Neuro General: patient oriented x3 and gait normal Cranial nerves: Yes Equal, round and reactive pupils present Speech: No Abnormal speech present Sensory Exam: No Sensory deficit (Neuro) Coordination: tandem gait normal and Romberg test negative Extrem General: Yes normal exam except as noted and No edema Assessment and Plan Assessment & Plan (1) Depression, major, recurrent: Code(s): F33.9 - Major depressive disorder, recurrent, unspecified Qualifiers: Active/Remission status: in partial remission Qualified Code(s): F33.41 - Major depressive disorder, recurrent, in partial remission (2) Anxiety, generalized: Code(s): F41.1 - Generalized anxiety disorder (3) Hypertension, essential: Code(s): I10 - Essential (primary) hypertension (4) Obesity due to excess calories: Code(s): E66.09 - Other obesity due to excess calories Qualifiers: Body mass index: BMI 36.0-36.9 Obesity classification: adult class 2 (BMI 35 - 39.9) Serious obesity comorbidity presence: with serious comorbidity Qualified Code(s): E66.01 - Morbid (severe) obesity due to excess calories; Z68.36 - Body mass index [BMI] 36.0-36.9, adult Plan Patient is a 42-year-old female came in today for physical examination Mammogram appointment is coming up Patient have [facility], she has Mirena Blood pressure is stable, patient is on atenolol 25 mg and lisinopril 10 mg, tolerating medications Blood test is due order placed, order also placed for next time Patient will return in 6 months for follow-up Orders: Orders Lipid Panel Today E66.09 - Other obesity due to excess calories, F33.9 - Major depressive disorder, recurrent, unspecified, F41.1 - Generalized anxiety disorder, I10 - Essential (primary) hypertension Complete Blood Count Auto Diff Today E66.09 - Other obesity due to excess calories, F33.9 - Major depressive disorder, recurrent, unspecified, F41.1 - Generalized anxiety disorder, I10 - Essential (primary) hypertension Comprehensive [place]. Panel Fast Today E66.09 - Other obesity due to excess calories, F33.9 - Major depressive disorder, recurrent, unspecified, F41.1 - Generalized anxiety disorder, I10 - Essential (primary) hypertension Complete Blood Count Auto Diff 6 Months E66.09 - Other obesity due to excess calories, F33.9 - Major depressive disorder, recurrent, unspecified, F41.1 - Generalized anxiety disorder, I10 - Essential (primary) hypertension Comprehensive [place]. Panel Fast 6 Months E66.09 - Other obesity due to excess calories, F33.9 - Major depressive disorder, recurrent, unspecified, F41.1 - Generalized anxiety disorder, I10 - Essential (primary) hypertension Lipid Panel 6 Months E66.09 - Other obesity due to excess calories, F33.9 - Major depressive disorder, recurrent, unspecified, F41.1 - Generalized anxiety disorder, I10 - Essential (primary) hypertension Medications: Refilled lisinopril 10 mg PO DAILY 90 tabs 1RF Coding Level of Care Code Est Pt Prev Care 40-64y(62479) Diagnoses Recurrent major depressive disorder, in partial remission F33.41 Active/Remission status: in partial remission Anxiety, generalized F41.1 Hypertension, essential I10 Class 2 severe obesity due to excess calories with serious comorbidity and body mass index (BMI) of 36.0 to 36.9 in adult E66.01; Z68.36 Body mass index: BMI 36.0-36.9 Obesity classification: adult class 2 (BMI 35 - 39.9) Serious obesity comorbidity presence: with serious comorbidity
== END 2023-01-20 11:09 | disposition home or self-care (01) ==
PROVIDERS: Visit Provider Internal Medicine
DX: Z00.00 Encounter for general adult medical examination without abnormal findings (principal); F33.41 Major depressive disorder, recurrent, in partial remission; E66.01 Morbid (severe) obesity due to excess calories; Z68.36 Body mass index [BMI] 36.0-36.9, adult; F41.1 Generalized anxiety disorder; I10 Essential (primary) hypertension
CPT/HCPCS: 99396

== ENCOUNTER 2023-02-07 12:39 | Outpatient (REF) | payer OTHER, SELFPAY ==
--- NOTE | ~2023-02-07 | MM_ITS ---
EXAMINATION: MM SCREENING DIGITAL BREAST TOMOSYNTHESIS, BILATERAL CLINICAL INFORMATION: Screening. Asymptomatic. COMPARISON: Mammography: 02/02/2022. TECHNIQUE: Digital breast tomosynthesis is performed in both the craniocaudal and mediolateral oblique views along with computer-aided detection (CAD). Synthesized 2D images are generated from the tomosynthesis. FINDINGS: There are scattered areas of fibroglandular density (ACR BI-RADS breast composition Category b). There are no suspicious masses, suspicious grouped calcifications, or areas of architectural distortion in either breast. The parenchymal pattern is stable from prior exams. No skin or axillary abnormality. MM/MM tomosynthesis screening BI IMPRESSION: No mammographic evidence of malignancy. ASSESSMENT: BI-RADS BI-RADS 1 - Negative RECOMMENDATION: Routine annual mammography screening. 1 year F/U This examination should not preclude the clinical evaluation of a suspicious palpable abnormality. This patient's information was entered into a reminder system with a target due date for their next mammogram.
== END 2023-02-07 12:40 | disposition home or self-care (01) ==
LOC: HO.MAMMO 12:39
PROVIDERS: PCP Internal Medicine; Visit Provider Internal Medicine
DX: Z12.31 Encounter for screening mammogram for malignant neoplasm of breast (principal)
CPT/HCPCS: 77063; 77067

== ENCOUNTER → 2023-02-07 13:00 | Outpatient (BNV) | payer OTHER, SELFPAY | PROVIDERS: PCP Internal Medicine; Visit Provider Radiology Diagnostic Radiology | DX: Z12.31 Encounter for screening mammogram for malignant neoplasm of breast (principal) | CPT/HCPCS: 77063; 77067 ==

== ENCOUNTER 2023-06-21 08:44 | Outpatient (REF) | payer OTHER, SELFPAY ==
[2023-06-21 10:53] LABS: MANUAL DIFF FLAG NO
[2023-06-21 11:02] LABS: Basophils Absolute Auto 0.1 X10*3/uL (0.0-0.2); Basophils Percent Auto 0.9 % (0-2); Eosinophils Absolute Auto 0.1 X10*3/uL (0.0-0.4); Eosinophils Percent Auto 1.9 % (0-4); Hematocrit 37.4 % (37.0-47.0); Hemoglobin 12.5 g/dl (12.0-16.0); Imm Gran Abs Auto 0.03 X10*3/uL (0.00-0.03); Imm Gran Pct Auto 0.4 % (0.0-0.4); Lymphocytes Absolute Auto 1.6 X10*3/uL (1.2-4.9); Mean Corpuscular HGB Conc 33.4 g/dl (31.0-35.0); Mean Corpuscular Hemoglobin 30.6 pg (27.0-33.0); Mean Corpuscular Volume 91.7 fL (80.0-98.0); Mean Platelet Volume 10.7 fL (9.4-12.3); Monocytes Absolute Auto 0.5 X10*3/uL (0.1-1.2); Monocytes Percent Auto 7.7 % (2-11); Neutrophils Absolute Auto 4.5 x10*3/uL (2.0-8.3); Neutrophils Percent Auto 66.1 % (45-73); Platelet Count 254 X10*3/uL (160-400); Red Blood Count 4.08 X10*6/uL (4.20-5.50); Red Cell Distribution Width 12.7 % (11.0-16.0); White Blood Count 6.8 X10*3/uL (4.8-10.8)
[2023-06-21 11:19] LABS: Estimated Average Glucose 108 mg/dL; Hemoglobin A1c % 5.4 % (<6.0)
[2023-06-21 11:30] LABS: Alanine Aminotransferase 13 U/L (0-31); Albumin Level 3.8 g/dL (3.5-5.0); Alkaline Phosphatase 60 U/L (39-117); Anion Gap 10 (12-20); Aspartate Amino Transferase 11 U/L (5-31); Bilirubin Total 0.4 mg/dL (0.0-1.0); Blood Urea Nitrogen 14 mg/dL (9-16); Calcium 8.9 mg/dL (8.4-10.2); Carbon Dioxide 26 mmol/L (22-29); Chloride 106 mmol/L (96-108); Cholesterol 164 mg/dL (<200); Estimated Glomerular Filt Rate > 60; Glucose Fasting 87 mg/dL (60-99); HDL Cholesterol 53 mg/dL (>40); LDL Cholesterol Calculated 94 mg/dL (<100); Potassium 4.2 mmol/L (3.3-5.1); Sodium 138 mmol/L (135-145); Total Protein 6.5 g/dL (6.5-8.0); Triglycerides 86 mg/dL (<150)
== END 2023-06-21 08:45 | disposition home or self-care (01) ==
LOC: HO.10HDL 08:44
PROVIDERS: Referring Provider Registered Nurse; Visit Provider Internal Medicine
DX: F33.9 Major depressive disorder, recurrent, unspecified (principal); F41.1 Generalized anxiety disorder; I10 Essential (primary) hypertension; E66.09 Other obesity due to excess calories; F90.9 Attention-deficit hyperactivity disorder, unspecified type; Z79.899 Other long term (current) drug therapy
CPT/HCPCS: 36415; 80053; 80061; 83036; 85025

== ENCOUNTER 2023-09-13 11:56 | Outpatient (AMB) | payer OTHER, SELFPAY ==
[2023-09-13 11:58] VITALS: BP 120/74; PULSE 74; O2SAT 98; BMI 38.2
--- NOTE | 2023-09-13 11:58 | A.OFFPC_ITS ---
Vital Signs 09/13/23 11:58 Height 5 ft 1 in Weight 202 lb 6 oz BMI 38.2 BP 120/74 Blood Pressure Location Rt brachial Position Sitting Pulse 74 Pulse Source Pulse Oximeter Pulse Oximetry (%) 98 Oxygen Delivery Method Room Air Intake Visit Reasons: 6 month Follow up Allergies No Known Allergies Allergy (Verified 09/13/23 12:01) Medication List - Last Reconciled 09/13/23 by Gabi Varma MD atenolol 25 mg PO DAILY cholecalciferol (vitamin D3) 1,000 units PO DAILY fluoxetine 20 mg PO DAILY lisinopril 10 mg PO DAILY methylphenidate HCl ER 18 mg PO QAM quetiapine 25 mg PO BEDTIME zolpidem ER 12.5 mg PO BEDTIME PRN Tobacco use date assessed: 09/13/23 Dental Screening Dental Screen Date: 09/13/23 Did you have a dental visit in the last 12 months?: Yes Did you have a dental problem in the last 6 months where you did not have access to dental care?: No Was dental information given to patient?: Patient has dentist HPI 6 month Follow up HPI Details Patient is 43-year-old female came in today for six-month follow-up appointment Blood pressure is well-controlled Patient is on atenolol 25 mg and lisinopril 10 mg, patient is tolerating medication no side effects Labs done recently reviewed She is seeing [facility] and is taking psychiatric medications through them Depression anxiety treated fluoxetine 20 mg Difficulty sleeping, patient is currently taking zolpidem 12.5 mg She is also on Seroquel 25 mg at bedtime BMI is elevated patient is having difficulty losing weight Patient has appointment for physical exam in 6 months Labs to be done before visit fasting [facility] Medical History IUD (intrauterine device) in place Obesity Depression, major, recurrent Anxiety, generalized Hypertension, essential Surgical History History of colonoscopy History of section H/O gastric bypass Family History Father HTN (hypertension) Hypothyroidism Diabetes mellitus Mother Colon cancer Maternal Grandfather Smoker Myocardial infarction Family/Other Ovarian cancer Sister Burn Maternal Uncle Mental health disorder Social History Household Members Other:: - 2 kids Housing: House Alcohol intake: current Alcohol intake frequency: a few times a week Alcohol type: wine Patient Tobacco Use Status: Never used Tobacco e-Cigarette/Vaping Use: Never Used Second Hand Smoke Exposure: No Advance Directives Date on File: 11/15/19 service: No Current occupational status: unemployed Current occupation: [employer] Cognitive needs: No Hearing needs: No Vision needs: No Questionnaire PHQ-9 Over the last 2 weeks, how often have you been bothered by any of the following problems? 1. Little interest or pleasure in doing things: not at all 2. Feeling down, depressed, or hopeless: not at all 3. Trouble falling or staying asleep, or sleeping too much: not at all 4. Feeling tired or having little energy: not at all 5. Poor appetite or overeating: not at all 6. Feeling bad about yourself - or that you are a failure or have let yourself or your family down: not at all 7. Trouble concentrating on things, such as reading the newspaper or watching television: not at all 8. Moving or speaking so slowly that other people could have noticed. Or the opposite - being so fidgety or restless that you have been moving around a lot more than usual: not at all 9. Thoughts that you would be better off or of hurting yourself in some way: not at all Total score: 0 Depression Screening Interpretation: Negative Depression Screening Done: Yes 62447 - PHQ-9 Billing: Yes Source: Developed by Drs. Bernardino White, Linette Parker, Hitesh Choi and colleagues, with an educational shashank from [employer]. Thrive Questionnaire Date Thrive assessed: 09/13/23 I am a: Patient What is your living situation today?: I have a steady place to live Within the past 12 months, did the food you bought not last and you didn't have the money to get more?: Never true Within the past 12 months, did you worry whether your food would run out before you got money to buy more?: Never true Do you have trouble paying for medicines?: No Do you have trouble getting transportation to medical appointments?: No Do you have trouble paying your heating and electricity bill?: No Do you have trouble taking care of your child, family member or friend?: No Do you have trouble with day-to-day activities such as bathing, preparing meals, shopping, managing finances, etc.?: No Are you currently unemployed and looking for a job?: Yes Are you interested in more education?: Yes Please select the resources that you would like help with: Housing/Alf Currently or been in a relationship where the following occur: No concerns reported THRIVE Score: 0 AUDIT C Alcohol Use Questionnaire (AUDIT-C) 1. How often do you have a drink containing alcohol?: 2-4 times a month 2. How many drinks containing alcohol do you have on a typical day when you are drinking?: 3 or 4 3. How often do you have six or more drinks on one occasion?: Never Total Score: 3 Score Reviewed/Action Taken: Yes MELVA-7 AMB Questionnaire MELVA-7 Date MELVA - 7 assessed: 09/13/23 Feeling nervous, anxious, or on edge: 1 = Several days Not being able to stop or control worryin = Several days Worrying too much about different things: 1 = Several days Trouble relaxin = Not at all Being so restless that it is hard to sit still: 0 = Not at all Becoming easily annoyed or irritable: 1 = Several days Feeling afraid as if something awful might happen: 1 = Several days Total MELVA-7 score (0-4 normal; 5-9 mild; 10-14 moderate; 15-21 severe): 5 Source: Developed by Drs. Bernardino White, Linette Parker, Hitesh Choi and colleagues, with an educational shashank from [employer]. MELVA-7 Assessment Billing MELVA-7 Assessment Tool: MELVA-7 Assessment 21862 Review of Systems Const Denies chills and Denies fever(s) ENT Denies epistaxis and Denies nasal discharge Card Denies chest pain Resp Denies chest congestion, Denies cough and Denies hemoptysis GI Denies diarrhea and Denies nausea Skin/Breast Denies rash Neuro Reports no additional complaints Psych Reports no additional complaints Endo Reports no additional complaints Physical exam (Primary Care) Vital Signs: Last Vital Signs Pulse 74 09/13/23 11:58 BP 120/74 09/13/23 11:58 Pulse Ox 98 09/13/23 11:58 Oxygen Delivery Method Room Air 09/13/23 11:58 BMI result Body Mass Index 38.2 Tobacco/Smoking Status: Tobacco use Status Tobacco use date assessed 09/13/23 09/13/23 12:02 Patient Tobacco Use Status Never used Tobacco 09/13/23 12:02 e-Cigarette/Vaping Use Never Used 09/13/23 12:02 PHQ-9: PHQ-9 Score PHQ-9: Total score 0 09/13/23 12:12 Depression Screening Interpretation: Negative Thrive Assessment: Date of Thrive Assessment Date Thrive assessed 09/13/23 09/13/23 12:02 Currently or been in a relationship where the following occur: No concerns rep orted Const General: cooperative, comfortable and no acute distress Orientation/consciousness: patient oriented x3 HENMT Head: Yes normocephalic Eyes General: appearance normal, both eyes and all related structures Neck Neck: Yes supple Resp Effort & Inspection: normal respiratory effort, no cough and no stridor Cardio Rhythm: regular rhythm Heart sounds: S1 normal heart sound present and S2 normal heart sound present Skin General skin exam: turgor normal Neuro General: patient oriented x3, tone normal and moves all extremities Extrem Right lower extremity: no edema Left lower extremity: no edema Assessment and Plan Assessment & Plan (1) Hypertension, essential: Code(s): I10 - Essential (primary) hypertension (2) Anxiety, generalized: Code(s): F41.1 - Generalized anxiety disorder (3) Depression, major, recurrent: Code(s): F33.9 - Major depressive disorder, recurrent, unspecified Qualifiers: Active/Remission status: in partial remission Qualified Code(s): F33.41 - Major depressive disorder, recurrent, in partial remission (4) Obesity due to excess calories: Code(s): E66.09 - Other obesity due to excess calories Qualifiers: Body mass index: BMI 36.0-36.9 Obesity classification: adult class 2 (BMI 35 - 39.9) Serious obesity comorbidity presence: with serious comorbidity Qualified Code(s): E66.01 - Morbid (severe) obesity due to excess calories; Z68.36 - Body mass index [BMI] 36.0-36.9, adult (5) Difficulty sleeping: Code(s): G47.9 - Sleep disorder, unspecified Plan Patient is 43-year-old female came in today for six-month follow-up appointment Blood pressure is well-controlled Patient is on atenolol 25 mg and lisinopril 10 mg, patient is tolerating medication no side effects Labs done recently reviewed She is seeing [facility] and is taking psychiatric medications through them Depression anxiety treated fluoxetine 20 mg Difficulty sleeping, patient is currently taking zolpidem 12.5 mg She is also on Seroquel 25 mg at bedtime BMI is elevated patient is having difficulty losing weight Patient has appointment for physical exam in 6 months Labs to be done before visit fasting Orders: Orders Comprehensive Matthews. Panel Fast 5 Months E66.01 - Morbid (severe) obesity due to excess calories, F33.41 - Major depressive disorder, recurrent, in partial remission, F41.1 - Generalized anxiety disorder, I10 - Essential (primary) hypertension, Z68.36 - Body mass index [BMI] 36.0-36.9, adult Complete Blood Count Auto Diff 5 Months E66.01 - Morbid (severe) obesity due to excess calories, F33.41 - Major depressive disorder, recurrent, in partial remission, F41.1 - Generalized anxiety disorder, I10 - Essential (primary) hypertension, Z68.36 - Body mass index [BMI] 36.0-36.9, adult Lipid Panel 5 Months E66.01 - Morbid (severe) obesity due to excess calories, F33.41 - Major depressive disorder, recurrent, in partial remission, F41.1 - Generalized anxiety disorder, I10 - Essential (primary) hypertension, Z68.36 - Body mass index [BMI] 36.0-36.9, adult TSH reflex Free T4 5 Months E66.01 - Morbid (severe) obesity due to excess calories, F33.41 - Major depressive disorder, recurrent, in partial remission, F41.1 - Generalized anxiety disorder, I10 - Essential (primary) hypertension, Z68.36 - Body mass index [BMI] 36.0-36.9, adult Vitamin D 25-OH (D2 and D3) 5 Months E66.01 - Morbid (severe) obesity due to excess calories, F33.41 - Major depressive disorder, recurrent, in partial remission, F41.1 - Generalized anxiety disorder, I10 - Essential (primary) hypertension, Z68.36 - Body mass index [BMI] 36.0-36.9, adult Coding Level of Care Code Est Pt Level 3 (58986) Diagnoses Hypertension, essential I10 Anxiety, generalized F41.1 Recurrent major depressive disorder, in partial remission F33.41 Active/Remission status: in partial remission Class 2 severe obesity due to excess calories with serious comorbidity and body mass index (BMI) of 36.0 to 36.9 in adult E66.01; Z68.36 Body mass index: BMI 36.0-36.9 Obesity classification: adult class 2 (BMI 35 - 39.9) Serious obesity comorbidity presence: with serious comorbidity Difficulty sleeping G47.9 Additional Codes MELVA-7 Assessment Billing - MELVA-7 Assessment Tool: MELVA-7 Assessment [id number] ([id number])
== END 2023-09-13 12:52 | disposition home or self-care (01) ==
PROVIDERS: PCP Internal Medicine; Visit Provider Internal Medicine
DX: I10 Essential (primary) hypertension (principal); F33.41 Major depressive disorder, recurrent, in partial remission; E66.01 Morbid (severe) obesity due to excess calories; Z68.36 Body mass index [BMI] 36.0-36.9, adult; F41.1 Generalized anxiety disorder; G47.9 Sleep disorder, unspecified
CPT/HCPCS: 99213

== ENCOUNTER 2024-02-09 13:53 | Outpatient (AMB) | payer OTHER, SELFPAY ==
--- NOTE | 2024-02-09 13:57 | MHC.PC.OV ---
Vital Signs 02/09/24 14:08 Height 5 ft 1 in Weight 211 lb BMI 39.9 BP 118/74 Blood Pressure Location Rt brachial Position Sitting Pulse 76 Pulse Source Pulse Oximeter Pulse Oximetry (%) 98 Oxygen Delivery Method Room Air Intake Visit Reasons: Annual PE Allergies No Known Allergies Allergy (Verified 02/09/24 14:08) Medication List - Last Reconciled 02/09/24 by Gabi Varma MD atenolol 25 mg PO DAILY cholecalciferol (vitamin D3) 1,000 units PO DAILY fluoxetine 20 mg PO DAILY lisinopril 10 mg PO DAILY methylphenidate HCl ER 18 mg PO QAM quetiapine 25 mg PO BEDTIME zolpidem ER 12.5 mg PO BEDTIME PRN Tobacco use date assessed: 02/09/24 Dental Screening Dental Screen Date: 02/09/24 Did you have a dental visit in the last 12 months?: Yes Did you have a dental problem in the last 6 months where you did not have access to dental care?: No Was dental information given to patient?: Patient has dentist HPI Annual PE HPI Details History - bulleted - The patient is a 43-year-old female presenting with annual physical examination. - Essential hypertension, well-managed on medication, no dizziness or lightheadedness reported. - patient is established with psych med prescriber, and is taking medication for Insomnia, Seroquel and Zolpidem; attempts to reduce Zolpidem usage, primarily using Seroquel, causes morning grogginess. - Anxiety and depression, managed with fluoxetine, therapy ongoing and regimen stable. - struggling with weight BMI is 39.9 Health Maintenance - Mammogram up to date, last done February; scheduled again for this month. - OBGYN visit up to date, likely conducted in June or August. [facility] - Flu vaccine received at [facility]. - History of gestational diabetes, fasting blood glucose encouraged annually. - History of bariatric surgery, unable to tolerate glucose tolerance tests; routine fasting glucose recommended due to family history of diabetes and complications. [place] [facility]: Psych med prescriber OBGYN at [facility] Medications - Atenolol, 25 mg, for hypertension - Lisinopril, 10 mg, for hypertension - Fluoxetine, 20 mg, for depression and anxiety - Seroquel, for sleep - Zolpidem, for insomnia (use as needed Diagnostic results - Labs (from previous year): No anemia, normal CBC, normal kidney function, normal blood sugar, normal liver enzymes, cholesterol very good. Review of Systems - Musculoskeletal: Denies dizziness, lightheadedness. - Psychological: Reports ongoing therapy, no significant issues with regimen. - Sleep: Reported difficulty sleeping, using medication. 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 - General: No fever no chills - Neurological: No headaches no dizziness - Ear nose throat: No sore throat no hearing difficulty no ear pain - Cardiovascular: No syncope, no chest pain, no palpitations - Gastrointestinal: No nausea vomiting or diarrhea - Endocrine: No polyuria polydipsia no heat intolerance - Genitourinary: No dysuria - Skin: No new complaints Physical Exam General: Cooperative, healthy appearing, comfortable, no acute distress Orientation: Patient oriented x3 Limitations: None Head: Normal to inspection Ears: Within normal limit visually, no problem reported Nose: Normal external nose present Face and sinus: Normal facial exam Eyes: Appearance normal, extraocular movement intact pupils reactive Neck: Normal visual inspection and supple Respiratory: Normal respiratory effort and able to speak in complete sentences. Clear to auscultation, no stridor Breast exam: By OBGYN Cardiovascular: S1 and S2 GI: Normal to inspection. Soft to palpation and nontender Skin: Turgor normal, no acute findings. Monitoring a mole that used to be darker, looks benign but needs evaluation if it gets bigger Neuro: Patient oriented x3, motor sensory intact, balance intact, tandem pass Extremities: Normal to inspection, good knee bending Patient Instructions - Complete fasting labs as ordered. - Continue current medication regimen. - Monitor changes in mole and seek evaluation if changes occur. Located right side of face and left lower leg anteriorly, small papules chronic - Maintain follow-ups for chronic conditions every six months. - Annual fasting glucose to be conducted to monitor for diabetes risk. - Schedule and attend mammogram as planned this month. - Practice sleep hygiene, reduce reliance on Zolpidem. Follow-up six-month, labs are due this month and then again in 6 months Physical exam 1 year [facility] Medical History IUD (intrauterine device) in place Obesity Depression, major, recurrent Anxiety, generalized Hypertension, essential Surgical History History of colonoscopy History of section H/O gastric bypass Family History Father HTN (hypertension) Hypothyroidism Diabetes mellitus Mother Colon cancer Maternal Grandfather Smoker Myocardial infarction Family/Other Ovarian cancer Sister Burn Maternal Uncle Mental health disorder Social History Household Members Other:: - 2 kids Housing: House Alcohol intake: current Alcohol intake frequency: a few times a week Alcohol type: wine Patient Tobacco Use Status: Never used Tobacco e-Cigarette/Vaping Use: Never Used Second Hand Smoke Exposure: No Advance Directives Date on File: 11/15/19 service: No Current occupational status: unemployed Current occupation: [employer] Cognitive needs: No Hearing needs: No Vision needs: No Questionnaire PHQ-9 Over the last 2 weeks, how often have you been bothered by any of the following problems? 1. Little interest or pleasure in doing things: not at all 2. Feeling down, depressed, or hopeless: not at all 3. Trouble falling or staying asleep, or sleeping too much: not at all 4. Feeling tired or having little energy: not at all 5. Poor appetite or overeating: not at all 6. Feeling bad about yourself - or that you are a failure or have let yourself or your family down: not at all 7. Trouble concentrating on things, such as reading the newspaper or watching television: not at all 8. Moving or speaking so slowly that other people could have noticed. Or the opposite - being so fidgety or restless that you have been moving around a lot more than usual: not at all 9. Thoughts that you would be better off or of hurting yourself in some way: not at all Total score: 0 Depression Screening Interpretation: Negative Depression Screening Done: Yes 37398 - PHQ-9 Billing: Yes Source: Developed by Drs. Bernardino White, Linette Parker, Hitesh Choi and colleagues, with an educational shashank from [email or web address]. Thrive Questionnaire Date Thrive assessed: 02/09/24 I am a: Patient What is your living situation today?: I have a steady place to live Within the past 12 months, did the food you bought not last and you didn't have the money to get more?: Never true Within the past 12 months, did you worry whether your food would run out before you got money to buy more?: Never true Do you have trouble paying for medicines?: No Do you have trouble getting transportation to medical appointments?: No Do you have trouble paying your heating and electricity bill?: No Do you have trouble taking care of your child, family member or friend?: No Do you have trouble with day-to-day activities such as bathing, preparing meals, shopping, managing finances, etc.?: No Are you currently unemployed and looking for a job?: No Are you interested in more education?: No Please select the resources that you would like help with: None Currently or been in a relationship where the following occur: No concerns reported THRIVE Score: 0 AUDIT C Alcohol Use Questionnaire (AUDIT-C) 1. How often do you have a drink containing alcohol?: Monthly or less 2. How many drinks containing alcohol do you have on a typical day when you are drinking?: 1 or 2 3. How often do you have six or more drinks on one occasion?: Never Total Score: 1 Score Reviewed/Action Taken: Yes MELVA-7 AMB Questionnaire MELVA-7 Date MELVA - 7 assessed: 02/09/24 Feeling nervous, anxious, or on edge: 0 = Not at all Not being able to stop or control worryin = Not at all Worrying too much about different things: 0 = Not at all Trouble relaxin = Not at all Being so restless that it is hard to sit still: 0 = Not at all Becoming easily annoyed or irritable: 0 = Not at all Feeling afraid as if something awful might happen: 0 = Not at all Total MELVA-7 score (0-4 normal; 5-9 mild; 10-14 moderate; 15-21 severe): 0 Source: Developed by Drs. Bernardino White, Linette Parker, Hitesh Choi and colleagues, with an educational shashank from [email or web address]. MELVA-7 Assessment Billing MELVA-7 Assessment Tool: MELVA-7 Assessment 04192 Physical exam (Primary Care) Vital Signs: Last Vital Signs Pulse 76 02/09/24 14:08 BP 118/74 02/09/24 14:08 Pulse Ox 98 02/09/24 14:08 Oxygen Delivery Method Room Air 02/09/24 14:08 BMI result Body Mass Index 39.9 Tobacco/Smoking Status: Tobacco use Status Tobacco use date assessed 02/09/24 02/09/24 14:11 Patient Tobacco Use Status Never used Tobacco 02/09/24 13:57 e-Cigarette/Vaping Use Never Used 02/09/24 13:57 PHQ-9: PHQ-9 Score PHQ-9: Total score 0 02/09/24 14:11 Depression Screening Interpretation: Negative Thrive Assessment: Date of Thrive Assessment Date Thrive assessed 02/09/24 02/09/24 14:11 Currently or been in a relationship where the following occur: No concerns reported Coding Level of Care Code Est Pt Level 3 (14316) Est Pt Prev Care 40-64y(40293) Diagnoses Encounter for general adult medical examination with abnormal findings Z00.01 Hypertension, essential I10 Anxiety, generalized F41.1 Recurrent major depressive disorder, in partial remission F33.41 Active/Remission status: in partial remission Difficulty sleeping G47.9 Class 2 severe obesity due to excess calories with serious comorbidity and body mass index (BMI) of 36.0 to 36.9 in adult E66.01; Z68.36 Obesity classification: adult class 2 (BMI 35 - 39.9) Serious obesity comorbidity presence: with serious comorbidity Body mass index: BMI 36.0-36.9 Family history of diabetes mellitus Z83.3 Additional Codes MELVA-7 Assessment Billing - MELVA-7 Assessment Tool: MELVA-7 Assessment 77156 ([id number]) PHQ-9 - 35771 - PHQ-9 Billing: Yes ([id number]) Assessment & Plan Assessment & Plan (1) Encounter for general adult medical examination with abnormal findings: Code(s): Z00.01 - Encounter for general adult medical examination with abnormal findings Category: Medical (2) Hypertension, essential: Code(s): I10 - Essential (primary) hypertension Category: Medical (3) Anxiety, generalized: Code(s): F41.1 - Generalized anxiety disorder Category: Medical (4) Depression, major, recurrent: Code(s): F33.9 - Major depressive disorder, recurrent, unspecified Category: Medical Qualifiers: Active/Remission status: in partial remission Qualified Code(s): F33.41 - Major depressive disorder, recurrent, in partial remission (5) Difficulty sleeping: Code(s): G47.9 - Sleep disorder, unspecified Category: Medical (6) Obesity due to excess calories: Code(s): E66.09 - Other obesity due to excess calories Category: Medical Qualifiers: Obesity classification: adult class 2 (BMI 35 - 39.9) Serious obesity comorbidity presence: with serious comorbidity Body mass index: BMI 36.0-36.9 Qualified Code(s): E66.01 - Morbid (severe) obesity due to excess calories; Z68.36 - Body mass index [BMI] 36.0-36.9, adult (7) Family history of diabetes mellitus: Code(s): Z83.3 - Family history of diabetes mellitus Category: Medical Plan History - bulleted - The patient is a 43-year-old female presenting with annual physical examination. - Essential hypertension, well-managed on medication, no dizziness or lightheadedness reported. - patient is established with psych med prescriber, and is taking medication for Insomnia, Seroquel and Zolpidem; attempts to reduce Zolpidem usage, primarily using Seroquel, causes morning grogginess. - Anxiety and depression, managed with fluoxetine, therapy ongoing and regimen stable. - struggling with weight BMI is 39.9 Health Maintenance - Mammogram up to date, last done February; scheduled again for this month. - OBGYN visit up to date, likely conducted in June or August. [facility] - Flu vaccine received at [facility]. - History of gestational diabetes, fasting blood glucose encouraged annually. - History of bariatric surgery, unable to tolerate glucose tolerance tests; routine fasting glucose recommended due to family history of diabetes and complications. [place] [facility]: Psych med prescriber OBGYN at [facility] Medications - Atenolol, 25 mg, for hypertension - Lisinopril, 10 mg, for hypertension - Fluoxetine, 20 mg, for depression and anxiety - Seroquel, for sleep - Zolpidem, for insomnia (use as needed Diagnostic results - Labs (from previous year): No anemia, normal CBC, normal kidney function, normal blood sugar, normal liver enzymes, cholesterol very good. Review of Systems - Musculoskeletal: Denies dizziness, lightheadedness. - Psychological: Reports ongoing therapy, no significant issues with regimen. - Sleep: Reported difficulty sleeping, using medication. 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 - General: No fever no chills - Neurological: No headaches no dizziness - Ear nose throat: No sore throat no hearing difficulty no ear pain - Cardiovascular: No syncope, no chest pain, no palpitations - Gastrointestinal: No nausea vomiting or diarrhea - Endocrine: No polyuria polydipsia no heat intolerance - Genitourinary: No dysuria - Skin: No new complaints Physical Exam General: Cooperative, healthy appearing, comfortable, no acute distress Orientation: Patient oriented x3 Limitations: None Head: Normal to inspection Ears: Within normal limit visually, no problem reported Nose: Normal external nose present Face and sinus: Normal facial exam Eyes: Appearance normal, extraocular movement intact pupils reactive Neck: Normal visual inspection and supple Respiratory: Normal respiratory effort and able to speak in complete sentences. Clear to auscultation, no stridor Breast exam: By OBGYN Cardiovascular: S1 and S2 GI: Normal to inspection. Soft to palpation and nontender Skin: Turgor normal, no acute findings. Monitoring a mole that used to be darker, looks benign but needs evaluation if it gets bigger Neuro: Patient oriented x3, motor sensory intact, balance intact, tandem pass Extremities: Normal to inspection, good knee bending Patient Instructions - Complete fasting labs as ordered. - Continue current medication regimen. - Monitor changes in mole and seek evaluation if changes occur. Located right side of face and left lower leg anteriorly, small papules chronic - Maintain follow-ups for chronic conditions every six months. - Annual fasting glucose to be conducted to monitor for diabetes risk. - Schedule and attend mammogram as planned this month. - Practice sleep hygiene, reduce reliance on Zolpidem. Follow-up six-month, labs are due this month and then again in 6 months Physical exam 1 year Orders: Orders Complete Blood Count Auto Diff 6 Months E66.01 - Morbid (severe) obesity due to excess calories, I10 - Essential (primary) hypertension, Z68.36 - Body mass index [BMI] 36.0-36.9, adult, Z83.3 - Family history of diabetes mellitus Hemoglobin A1c 6 Months E66.01 - Morbid (severe) obesity due to excess calories, I10 - Essential (primary) hypertension, Z68.36 - Body mass index [BMI] 36.0-36.9, adult, Z83.3 - Family history of diabetes mellitus Comprehensive Met. Panel 6 Months E66.01 - Morbid (severe) obesity due to excess calories, I10 - Essential (primary) hypertension, Z68.36 - Body mass index [BMI] 36.0-36.9, adult, Z83.3 - Family history of diabetes mellitus
[2024-02-09 14:08] VITALS: BP 118/74; PULSE 76; O2SAT 98; BMI 39.9
== END 2024-02-09 14:38 | disposition home or self-care (01) ==
PROVIDERS: PCP Internal Medicine; Visit Provider Internal Medicine
DX: Z00.00 Encounter for general adult medical examination without abnormal findings (principal); F33.41 Major depressive disorder, recurrent, in partial remission; E66.01 Morbid (severe) obesity due to excess calories; Z68.36 Body mass index [BMI] 36.0-36.9, adult; I10 Essential (primary) hypertension; F41.1 Generalized anxiety disorder; G47.9 Sleep disorder, unspecified; Z83.3 Family history of diabetes mellitus

== ENCOUNTER → 2024-02-09 13:53 | Outpatient (BNVA) | payer OTHER, SELFPAY | PROVIDERS: PCP Internal Medicine; Visit Provider Internal Medicine | DX: Z00.01 Encounter for general adult medical examination with abnormal findings (principal); I10 Essential (primary) hypertension; F41.1 Generalized anxiety disorder; F33.41 Major depressive disorder, recurrent, in partial remission; G47.9 Sleep disorder, unspecified; E66.01 Morbid (severe) obesity due to excess calories; Z68.36 Body mass index [BMI] 36.0-36.9, adult; Z79.899 Other long term (current) drug therapy; Z83.3 Family history of diabetes mellitus | CPT/HCPCS: 96127 ==

== ENCOUNTER 2024-03-05 12:36 | Outpatient (REF) | payer OTHER, SELFPAY | END 2024-03-05 12:37 | disposition home or self-care (01) | LOC: HO.MAMMO 12:36 | PROVIDERS: PCP Internal Medicine; Visit Provider Internal Medicine | DX: Z12.31 Encounter for screening mammogram for malignant neoplasm of breast (principal) | CPT/HCPCS: 77063; 77067 ==

== ENCOUNTER → 2024-03-05 12:45 | Outpatient (BNV) | payer OTHER, SELFPAY | PROVIDERS: PCP Internal Medicine; Visit Provider Internal Medicine | DX: Z12.31 Encounter for screening mammogram for malignant neoplasm of breast (principal) | CPT/HCPCS: 77063; 77067 ==

== ENCOUNTER 2024-07-16 06:12 | Outpatient (REF) | payer OTHER, SELFPAY ==
[2024-07-16 06:33] LABS: MANUAL DIFF FLAG NO
[2024-07-16 07:17] LABS: Basophils Absolute Auto 0.1 X10*3/uL (0.0-0.2); Basophils Percent Auto 0.8 % (0-2); Eosinophils Absolute Auto 0.1 X10*3/uL (0.0-0.4); Eosinophils Percent Auto 1.5 % (0-4); Hemoglobin 12.4 g/dl (12.0-16.0); Imm Gran Abs Auto 0.03 X10*3/uL (0.00-0.03); Imm Gran Pct Auto 0.4 % (0.0-0.4); Lymphocytes Absolute Auto 1.7 X10*3/uL (1.2-4.9); Lymphocytes Percent Auto 21.1 % (20-40); Mean Corpuscular HGB Conc 33.5 g/dl (31.0-35.0); Mean Corpuscular Hemoglobin 30.2 pg (27.0-33.0); Mean Platelet Volume 10.9 fL (9.4-12.3); Monocytes Absolute Auto 0.7 X10*3/uL (0.1-1.2); Monocytes Percent Auto 8.3 % (2-11); Neutrophils Absolute Auto 5.3 x10*3/uL (2.0-8.3); Neutrophils Percent Auto 67.9 % (45-73); Platelet Count 265 X10*3/uL (160-400); Red Blood Count 4.11 X10*6/uL (4.20-5.50); White Blood Count 7.9 X10*3/uL (4.8-10.8)
[2024-07-16 07:24] LABS: Estimated Average Glucose 105 mg/dL; Hemoglobin A1c % 5.3 % (<6.0)
[2024-07-16 07:51] LABS: Alanine Aminotransferase 10 U/L (0-31); Albumin Level 4.2 g/dL (3.5-5.0); Alkaline Phosphatase 70 U/L (39-117); Anion Gap 10 (12-20); Aspartate Amino Transferase 14 U/L (5-31); Bilirubin Total 0.4 mg/dL (0.0-1.0); Blood Urea Nitrogen 14 mg/dL (9-16); Calcium 8.8 mg/dL (8.4-10.2); Carbon Dioxide 25 mmol/L (22-29); Chloride 109 mmol/L (96-108); Cholesterol 144 mg/dL (<200); Estimated Glomerular Filt Rate > 60; Glucose Fasting 88 mg/dL (60-99); Glucose Random 88 mg/dL (60-115); HDL Cholesterol 44 mg/dL (>40); LDL Cholesterol Calculated 88 mg/dL (<100); Potassium 4.1 mmol/L (3.3-5.1); Sodium 140 mmol/L (135-145); Total Protein 6.6 g/dL (6.5-8.0); Triglycerides 61 mg/dL (<150)
[2024-07-16 08:09] LABS: TSH reflex Free T4 1.64 uIU/mL (0.32-4.0)
[2024-07-20 15:08] LABS: Vitamin D 25-OH, D2 <4 ng/mL; Vitamin D 25-OH, D3 29 ng/mL; Vitamin D 25-OH, Total 29 ng/mL (30-100)
== END 2024-07-16 06:13 | disposition home or self-care (01) ==
LOC: HO.LAB 06:12
PROVIDERS: PCP Internal Medicine; Visit Provider Internal Medicine
DX: Z13.1 Encounter for screening for diabetes mellitus (principal); I10 Essential (primary) hypertension; F41.1 Generalized anxiety disorder; F33.41 Major depressive disorder, recurrent, in partial remission; E66.01 Morbid (severe) obesity due to excess calories; Z68.36 Body mass index [BMI] 36.0-36.9, adult; Z83.3 Family history of diabetes mellitus
CPT/HCPCS: 36415; 80053; 80061; 82306; 83036; 84443; 85025

== ENCOUNTER 2024-07-16 10:51 | Outpatient (AMB) | payer OTHER, SELFPAY ==
[2024-07-16 11:00] VITALS: BP 112/78; PULSE 71; RESP 18; O2SAT 98; BMI 40.1
--- NOTE | 2024-07-16 11:00 | A.OFFPC_ITS ---
Vital Signs 07/16/24 11:00 Height 5 ft 1 in Weight 212 lb BMI 40.1 BP 112/78 Blood Pressure Location Rt brachial Position Sitting Respiration 18 Pulse 71 Pulse Source Pulse Oximeter Pulse Oximetry (%) 98 Oxygen Delivery Method Room Air Intake Visit Reasons: 6 months f/up Allergies No Known Allergies Allergy (Verified 02/09/24 14:08) Medication List - Last Reconciled 07/16/24 by Gabi Varma MD atenolol 25 mg PO DAILY cholecalciferol (vitamin D3) 1,000 units PO DAILY fluoxetine 20 mg PO DAILY lisinopril 10 mg PO DAILY methylphenidate HCl ER 27 mg PO QAM quetiapine 25 mg PO BEDTIME zolpidem ER 12.5 mg PO BEDTIME PRN Tobacco use date assessed: 07/16/24 Dental Screening Dental Screen Date: 07/16/24 Did you have a dental visit in the last 12 months?: Yes Did you have a dental problem in the last 6 months where you did not have access to dental care?: No Was dental information given to patient?: Patient has dentist HPI 6 months f/up HPI Details History - bulleted - The patient is a 44-year-old female pr esenting regular six-month follow-up appointment - Essential hypertension, well-managed o n medication, no dizziness or lightheadedness reported. - patient is established with psych med prescriber, and is taking medication for Insomnia, Seroquel and Zolpidem however in a process of transitioning She will be meeting with our behavior health coordinator for that today - Anxiety and depression, managed with f luoxetine, therapy ongoing at [facility] - struggling with weight BMI is 40.1 - patient has a history of sleep apnea i n the past but she could not tolerate CPAP machine She has gained weight since and is having episodes of sleep apnea at night and would like to repeat the sleep study Medications - Atenolol, 25 mg, for hypertension - Lisinopril, 10 mg, for hypertension - Fluoxetine, 20 mg, for depression and anxiety - Seroquel, for sleep - Zolpidem, for insomnia (use as needed Review of Systems - General: No fever no chills - Neurological: No headaches no dizzin ess - Ear nose throat: No sore throat no hearing difficulty no ear pain - Cardiovascular: No syncope, no chest pain, no palpitations - Gastrointestinal: No nausea vomiting or diarrhea - Endocrine: No polyuria polydipsia no heat intolerance - Genitourinary: No dysuria - Skin: No new complaints Physical Exam General: Cooperative, healthy appearing, comfortable, no acute distress Orientation: Patient oriented x3 Head: Normal to inspection HEENT: Within normal limit Neck: Normal visual inspection and supple Respiratory: Normal respiratory effort and able to speak in complete sentences. Clear to auscultation, no stridor Breast exam: By OBGYN Cardiovascular: S1 and S2 regular in rate and rhythm Skin: Turgor normal, Neuro: Patient oriented x3, motor sensory intact, Extremities: Normal to inspection, good knee bending Patient Instructions - Continue current medication regimen. - Maintain follow-ups for chronic condit ions every six months. - sleep study will be conducted, sleep l ab will get in touch with the COUNTS INCLUDE 234 BEDS AT THE [facility] Medical History IUD (intrauterine device) in place Obesity Depression, major, recurrent Anxiety, generalized Hypertension, essential Surgical History History of colonoscopy History of section H/O gastric bypass Family History Father HTN (hypertension) Hypothyroidism Diabetes mellitus Mother Colon cancer Maternal Grandfather Smoker Myocardial infarction Family/Other Ovarian cancer Sister Burn Maternal Uncle Mental health disorder Social History Household Members Other:: - 2 kids Housing: House Alcohol intake: current Alcohol intake frequency: a few times a week Alcohol type: wine Patient Tobacco Use Status: Never used Tobacco e-Cigarette/Vaping Use: Never Used Second Hand Smoke Exposure: No Advance Directives Date on File: 11/15/19 service: No Current occupational status: unemployed 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 Cognitive needs: No Hearing needs: No Vision needs: No Questionnaire Thrive Questionnaire Date Thrive assessed: 07/16/24 I am a: Patient What is your living situation today?: I have a steady place to live Within the past 12 months, did the food you bought not last and you didn't have the money to get more?: Never true Within the past 12 months, did you worry whether your food would run out before you got money to buy more?: Never true Do you have trouble paying for medicines?: No Do you have trouble getting transportation to medical appointments?: No Do you have trouble paying your heating and electricity bill?: No Do you have trouble taking care of your child, family member or friend?: No Do you have trouble with day-to-day activities such as bathing, preparing meals, shopping, managing finances, etc.?: No Are you currently unemployed and looking for a job?: No Are you interested in more education?: No Please select the resources that you would like help with: None Currently or been in a relationship where the following occur: No concerns reported THRIVE Score: 0 AUDIT C Alcohol Use Questionnaire (AUDIT-C) 1. How often do you have a drink containing alcohol?: Monthly or less 2. How many drinks containing alcohol do you have on a typical day when you are drinking?: 1 or 2 3. How often do you have six or more drinks on one occasion?: Never Total Score: 1 Score Reviewed/Action Taken: Yes MELVA-7 AMB Questionnaire MELVA-7 Date MELVA - 7 assessed: 02/09/24 Source: Developed by Drs. Bernardino White, Linette Parker, Hitesh Choi and colleagues, with an educational shashank from [employer]. Physical exam (Primary Care) Vital Signs: Last Vital Signs Pulse 71 07/16/24 11:00 Resp 18 07/16/24 11:00 BP 112/78 07/16/24 11:00 Pulse Ox 98 07/16/24 11:00 Oxygen Delivery Method Room Air 07/16/24 11:00 BMI result Body Mass Index 40.1 Tobacco/Smoking Status: Tobacco use Status Tobacco use date assessed 07/16/24 07/16/24 11:04 Patient Tobacco Use Status Never used Tobacco 07/16/24 11:04 e-Cigarette/Vaping Use Never Used 07/16/24 11:04 Thrive Assessment: Date of Thrive Assessment Date Thrive assessed 07/16/24 07/16/24 11:04 Currently or been in a relationship where the following occur: No concerns reported Coding Level of Care Code Est Pt Level 4 (02272) Diagnoses Obstructive sleep apnea syndrome G47.33 Sleep apnea type: obstructive Hypertension, essential I10 Anxiety, generalized F41.1 Recurrent major depressive disorder, in partial remission F33.41 Active/Remission status: in partial remission Difficulty sleeping G47.9 Morbid obesity due to excess calories E66.01 Assessment & Plan Assessment & Plan (1) Sleep apnea: Code(s): G47.30 - Sleep apnea, unspecified Category: Medical Qualifiers: Sleep apnea type: obstructive Qualified Code(s): G47.33 - Obstructive sleep apnea (adult) (pediatric) (2) Hypertension, essential: Code(s): I10 - Essential (primary) hypertension Category: Medical (3) Anxiety, generalized: Code(s): F41.1 - Generalized anxiety disorder Category: Medical (4) Depression, major, recurrent: Code(s): F33.9 - Major depressive disorder, recurrent, unspecified Category: Medical Qualifiers: Active/Remission status: in partial remission Qualified Code(s): F33.41 - Major depressive disorder, recurrent, in partial remission (5) Difficulty sleeping: Code(s): G47.9 - Sleep disorder, unspecified Category: Medical (6) Morbid obesity due to excess calories: Code(s): E66.01 - Morbid (severe) obesity due to excess calories Category: Medical Plan History - bulleted - The patient is a 44-year-old female presenting regular six-month follow-up appointment - Essential hypertension, well-managed on medication, no dizziness or lightheadedness reported. - patient is established with psych med prescriber, and is taking medication for Insomnia, Seroquel and Zolpidem however in a process of transitioning She will be meeting with our behavior health coordinator for that today - Anxiety and depression, managed with fluoxetine, therapy ongoing at [facility] - struggling with weight BMI is 40.1 - patient has a history of sleep apnea in the past but she could not tolerate CPAP machine She has gained weight since and is having episodes of sleep apnea at night and would like to repeat the sleep study Medications - Atenolol, 25 mg, for hypertension - Lisinopril, 10 mg, for hypertension - Fluoxetine, 20 mg, for depression and anxiety - Seroquel, for sleep - Zolpidem, for insomnia (use as needed Patient Instructions - Continue current medication regimen. - Maintain follow-ups for chronic conditions every six months. - sleep study will be conducted, sleep lab will get in touch with the Orders: Orders RT home sleep study Today G47.30 - Sleep apnea, unspecified
== END 2024-07-16 11:26 | disposition home or self-care (01) ==
LOC: HO.HMCC 10:51
PROVIDERS: PCP Internal Medicine; Visit Provider Internal Medicine
DX: G47.33 Obstructive sleep apnea (adult) (pediatric) (principal); Z68.41 Body mass index [BMI] 40.0-44.9, adult; E66.01 Morbid (severe) obesity due to excess calories; I10 Essential (primary) hypertension; F41.1 Generalized anxiety disorder; F33.41 Major depressive disorder, recurrent, in partial remission; G47.9 Sleep disorder, unspecified

== ENCOUNTER 2024-08-15 14:25 | Outpatient (AMB) | payer OTHER, SELFPAY ==
[2024-08-15 14:49] VITALS: BP 122/80; PULSE 75; TEMP 36.8; O2SAT 100; BMI 38.9
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
== END 2024-08-15 15:41 | disposition home or self-care (01) ==
PROVIDERS: PCP Internal Medicine; Visit Provider Nurse Practitioner Family
DX: M54.2 Cervicalgia (principal)

== ENCOUNTER 2024-09-13 14:05 | Outpatient (AMB) | payer OTHER, SELFPAY ==
[2024-09-13 14:07] VITALS: BP 118/74; PULSE 78; RESP 18; TEMP 36.8; O2SAT 99; BMI 38.9
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
== END 2024-09-13 14:38 | disposition home or self-care (01) ==
LOC: HO.HMCC 14:05
PROVIDERS: PCP Internal Medicine; Visit Provider Internal Medicine
DX: R20.2 Paresthesia of skin (principal); M54.12 Radiculopathy, cervical region; Z04.3 Encounter for examination and observation following other accident; V89.2XXS Person injured in unspecified motor-vehicle accident, traffic, sequela; Z56.89 Other problems related to employment

== ENCOUNTER → 2024-10-08 13:54 | Outpatient (REF) | payer OTHER, SELFPAY ==
--- OUTSIDE RECORDS SUMMARY | 2024-10-08 15:09 | XMS_ITS | Encounter Summary ---
Author Organization [facility] Address [address] [facility] [address] [place] [phone] Phone Care Team Providers Care Lens Silverer Name Role Phone Pcp, Unknown Primary Care Provider Unavailabl e Encounter Details Date Type Department Care Team (Late st Contact Info) Description 08/10/2024 Procedure Pass [facility], Ct Scan - [address] [address] Social History Tobacco Use Types Packs/Day Years Used Date Smoking Tobacco: Never Assessed Education Answer Date Recorded Are you interested in more education? Not on annemarie e 08/10/2024 Are you concerned about learning? Not on file 08/10/2024 No 08/10/2024 No 08/10/2024 Digital Access Answer Date Recorded No 08/10/2024 No 08/10/2024 Reliable internet access at home? Not on file 08/10/2024 Device with a working camera? Not on file Intimate Partner Violence Answer Date R ecorded Are you denied basic needs s uch as food, clothing, or medical care? No 08/10/2024 In the past 12 months have y ou been in a relationship with a person who hurts, threatens, or tries to control you? No 08/10/2024 Are you denied basic needs s uch as food, clothing, or medical care? No 08/10/2024 In the past 12 months have y ou been in a relationship with a person who hurts, threatens, or tries to control you? No 08/10/2024 Comments Unknown Sex and Gender Information Value Date Recorded Sex Assigned at Not on file Legal Sex Female 12:57 AM EDT Gender Identity Not on file Sexual Orientation Not on file documented as of this encounter Functional Status * Calculated C-SSRS Risk Score (Lifetime/Recent) Answer Date of Assessment Author No Risk Indicated 08/10/2024 1:11 AM Abelardo Rondon RN * [place] Suicide Severity Rating Scale (Screener/Recent Self-Report) Question Answer Date of Assessment Author 1. Wish to be (Past 1 Month) No 025 1:11 AM Abelardo Rondon RN 2. Non-Specific Active Suici chao Thoughts (Past 1 Month) No 08/10/2024 1:11 AM EDAbelardo Newberry RN 6. Suicidal Behavior (Lifetime) No 5 1:11 AM EDAbelardo Newberry RN documented as of this encounter Plan of Treatment Not on file documented as of this encounter Visit Diagnoses Not on filedocumented in this encounter Care Teams Lens Silverer Relationship Specialty Start Date End Date Pcp, Unknown PCP - General 08/10/24 documented as of this encounter Additional Source Comments The information contained in this document represents components of the legal health record. It is not the complete legal health record.[facility]
--- OUTSIDE RECORDS SUMMARY | 2024-10-08 15:09 | XMS_ITS | Encounter Summary ---
Author Organization [facility] Address [address] [facility] [address] [place] [phone] Phone Care Team Providers Care Notch Machine Operator Name Role Phone Pcp, Unknown Primary Care Provider Unavailabl e Encounter Details Date Type Department Care Team (Late st Contact Info) Description 08/10/2024 Procedure Pass [facility], Ct Scan - [address] [address] Social History Tobacco Use Types Packs/Day Years [...] 08/10/2024 1:11 AM Abelardo Rondon RN * [place] Suicide Severity Rating Scale (Screener/Recent Self-Report) Question [...] on filedocumented in this encounter Care Teams Notch Machine Operator Relationship Specialty Start Date End Date Pcp, Unknown PCP - General 08/10/24 documented as of this encounter Additional Source Comments The information contained in this document represents components of the legal health record. It is not the complete legal health record.[facility]
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
== END ==
LOC: HO.SL 13:54
PROVIDERS: PCP Internal Medicine; Visit Provider Internal Medicine
DX: G47.33 Obstructive sleep apnea (adult) (pediatric) (principal); G47.30 Sleep apnea, unspecified
CPT/HCPCS: 95806

== ENCOUNTER → 2024-10-08 14:06 | Outpatient (BNV) | payer OTHER, SELFPAY | PROVIDERS: PCP Internal Medicine; Visit Provider Internal Medicine | DX: G47.33 Obstructive sleep apnea (adult) (pediatric) (principal) | CPT/HCPCS: 95806 ==

== ENCOUNTER 2024-10-23 13:02 | Outpatient (AMB) | payer OTHER, SELFPAY ==
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
[2024-10-23 13:05] VITALS: BP 118/74; PULSE 67; RESP 20; TEMP 36.7; O2SAT 97; BMI 40.4
--- OUTSIDE RECORDS SUMMARY | 2024-10-23 16:32 | XMS_ITS | Encounter Summary ---
Author Organization [facility] Address [address] [facility] [address] [place] [phone] Phone Care Team Providers Care Seat Installer Name Role Phone Pcp, Unknown Primary Care Provider Unavailabl e Encounter Details Date Type Department Care Team (Late st Contact Info) Description 08/10/2024 Procedure Pass [facility], Ct Scan - [address] [address] Social History Tobacco Use Types Packs/Day Years [...] 08/10/2024 1:11 AM Abelardo Rondon RN * [place] Suicide Severity Rating Scale (Screener/Recent Self-Report) Question [...] on filedocumented in this encounter Care Teams Seat Installer Relationship Specialty Start Date End Date Pcp, Unknown PCP - General 08/10/24 documented as of this encounter Additional Source Comments The information contained in this document represents components of the legal health record. It is not the complete legal health record.[facility]
--- OUTSIDE RECORDS SUMMARY | 2024-10-23 16:32 | XMS_ITS | Clinical Summary ---
Author Organization [facility] Address [address] [facility] [address] [place] [address] Phone Care Team Providers Care Vp Scientific Affairs Name Role Phone Pcp, Unknown Primary Care Provider Unavailabl e Allergies No known active allergies Encounters Date Type Department Care Team Description 08/10/2024 1:01 AM EDT - 08/10/2024 2:29 AM EDT Emergency [facility] [address] [place] [address] Brandy Kaminski MD Discharge Disposition: Home or Self Care 08/10/2024 Procedure Pass [facility] [address] [place] [address] 08/10/2024 Procedure [facility] [address] [place] [address] from Last 3 Months Social History Tobacco [...] YEARS) 1998 PAP SMEAR 2001 MAMMOGRAM 2020 INFLUENZA VACCINE (#1) 2024 COVID-19 VACCINE (2023-2 5 season) 2024 HEPATITIS A VACCINES Aged Out No long [...] clinician's provided indication for this examination in [facility]: * Neck trauma, intoxicated or obtunded [...] clinician's provided indication for this examination in [facility]: *Neck trauma, intoxicated or obtunded (Age [...] of the cervical spine. Brandy Kaminski MD [facility] CT XSPECIALTY ORDERABLES Final Result * CT [...] Resul t from Last 3 Months Insurance [facility] Care Teams Vp Scientific Affairs Relationship Specialty Start Date End Date Pcp, Unknown PCP - General 08/10/24 Additional Source Comments The information contained in this document represents components of the legal health record. It is not the complete legal health record.[facility]
--- OUTSIDE RECORDS SUMMARY | 2024-10-23 16:32 | XMS_ITS | Encounter Summary ---
Author Organization [facility] Address [address] [facility] [address] [place] [address] Phone Care Team Providers Care Naturalization Examiner Name Role Phone Pcp, Unknown Primary Care Provider Unavailabl e Encounter Details Date Type Department Care Team (Late st Contact Info) Description 08/10/2024 Procedure Pass [facility], Ct Scan - [address] [address] Social History Tobacco Use Types Packs/Day Years [...] 08/10/2024 1:11 AM Abelardo Rondon RN * [place] Suicide Severity Rating Scale (Screener/Recent Self-Report) Question [...] on filedocumented in this encounter Care Teams Naturalization Examiner Relationship Specialty Start Date End Date Pcp, Unknown PCP - General 08/10/24 documented as of this encounter Additional Source Comments The information contained in this document represents components of the legal health record. It is not the complete legal health record.[facility]
== END 2024-10-23 13:28 | disposition home or self-care (01) ==
PROVIDERS: PCP Internal Medicine; Visit Provider Internal Medicine
DX: M54.12 Radiculopathy, cervical region (principal); V89.2XXS Person injured in unspecified motor-vehicle accident, traffic, sequela; R20.2 Paresthesia of skin; Z04.3 Encounter for examination and observation following other accident

== ENCOUNTER → 2024-10-23 13:02 | Outpatient (BNVA) | payer OTHER, SELFPAY | PROVIDERS: PCP Internal Medicine; Visit Provider Internal Medicine | DX: M54.12 Radiculopathy, cervical region (principal); M54.2 Cervicalgia; R20.2 Paresthesia of skin; V89.2XXD Person injured in unspecified motor-vehicle accident, traffic, subsequent encounter; Z56.89 Other problems related to employment | CPT/HCPCS: 96127 ==

== ENCOUNTER 2024-11-22 11:02 | Outpatient (RCR) | payer OTHER, SELFPAY ==
--- NOTE | 2024-10-25 07:35 | MHC.PT.EP ---
[facility] [place] Office [place] Office [place] Office [address] Dajuan Vera [address] [phone] F: [phone] F: [phone] F: [phone] F: [phone] Physical Therapy Plan of Care Date of Evaluation: 10/22/24 Date of Surgery: N/A Diagnosis: radiculitis of right cervical region (RL) Assessment: pt is a 44 y/o female presenting to physical therapy w/ referring diagnosis of radiculitis of right cervical region. Impairments include pain, decreased range of motion, decreased strength, impaired functional mobility, impaired postural awareness, and altered ambulation mechanics. pt is a good candidate for skilled PT due to age, potential remediation of impairments, typical disease/condition progression and prognosis, comorbidities, and motivation. pt would benefit from skilled PT intervention to provide a tailored strengthening and stretching exercise program, functional training, gait training, postural re-training, neuromuscular re-education, modalities as needed for pain, equipment safety demonstration. Frequency and Duration: The patient will be seen 2x/wk for 4 wks Short Term Goals: pt will be I w/ HEP to promote self-management of condition. pt will demo proper sitting and supine postures w/ lumbar/towel rolls to promote neutral spine w/ seated ADLs/sleeping. Fdc Goals: pt will report a statistically significant improvement in self-reported outcome measure, NDI, to promote return to PLOF. pt will improve B cervical rotation by at least 10* to promote ease in head turns w/ driving. Treatment Plan: Modalities to reduce pain, spasms and effusion. Manual therapy to restore motion and function. Therapeutic exercise to improve strength and flexibility. Neuromuscular re-education for posture and balance. Therapeutic activities to return to functional activities of daily living. Electronically signed by: Kiley Burrell PT, DPT Please sign and return to therapist. Thank you for your referral.
--- NOTE | 2024-12-09 16:21 | MHC.PT.DC ---
[facility] [place] Office [place] Office [place] Office [address] Dajuan Vera [address] [phone] F: [phone] F: [phone] F: [phone] F: [phone] Physical Therapy Discharge Report Diagnosis: radiculitis of right cervical region (RL) Date of Surgery: N/A Date of Evaluation: 10/22/24 Date of Discharge: 12/09/24 Treatments to Date: 8 Cancellations to Date: 1 No Shows to Date: 0 Discharge Status: Improved Function Independent with HEP Discharge Summary: The patient was reporting less neck pain. She was compliant with her home exercise program. Unfortunately, she did not follow-up with any additional visits. She is discharged from this physical therapy plan of care. Electronically signed by: Kiley Burrell PT, DPT Please sign and return to therapist. Thank you for your referral.
== END 2024-12-09 16:22 | disposition home or self-care (01) ==
LOC: HO.PT 11:02
PROVIDERS: PCP Internal Medicine; Visit Provider Internal Medicine
DX: M54.12 Radiculopathy, cervical region (principal)
CPT/HCPCS: 97110; 97112; 97140; 97162

== ENCOUNTER 2025-01-01 13:04 | Outpatient (REF) | payer OTHER, SELFPAY ==
[2025-01-01 13:12] LABS: MANUAL DIFF FLAG NO
[2025-01-01 13:52] LABS: Hematocrit 39.3 % (37.0-47.0); Hemoglobin 12.9 g/dl (12.0-16.0); Imm Gran Abs Auto 0.02 X10*3/uL (0.00-0.03); Imm Gran Pct Auto 0.2 % (0.0-0.4); Lymphocytes Absolute Auto 1.7 X10*3/uL (1.2-4.9); Mean Corpuscular HGB Conc 32.8 g/dl (31.0-35.0); Mean Corpuscular Hemoglobin 30.0 pg (27.0-33.0); Mean Corpuscular Volume 91.4 fL (80.0-98.0); NRBC Abs Auto 0.000 X10*3/uL (0.0-0.012); NRBC Pct Auto 0.0 /100WBC (0.0-0.2); Platelet Count 280 X10*3/uL (160-400); Red Blood Count 4.30 X10*6/uL (4.20-5.50); White Blood Count 8.7 X10*3/uL (4.8-10.8)
[2025-01-01 14:32] LABS: Alanine Aminotransferase 16 U/L (0-31); Albumin Level 4.4 g/dL (3.5-5.0); Alkaline Phosphatase 77 U/L (39-117); Anion Gap 10 (12-20); Aspartate Amino Transferase 18 U/L (5-31); Blood Urea Nitrogen 8 mg/dL (9-16); Calcium 9.2 mg/dL (8.4-10.2); Carbon Dioxide 25 mmol/L (22-29); Chloride 107 mmol/L (96-108); Cholesterol 173 mg/dL (<200); Estimated Glomerular Filt Rate > 60; HDL Cholesterol 42 mg/dL (>40); Potassium 4.3 mmol/L (3.3-5.1); Sodium 138 mmol/L (135-145); Total Protein 7.2 g/dL (6.5-8.0); Triglycerides 87 mg/dL (<150)
--- OUTSIDE RECORDS SUMMARY | 2025-01-01 16:09 | XMS_ITS | Encounter Summary ---
Author Organization [facility] Address [address] [facility] [address] [place] [address] Phone Care Team Providers Care Home Hospice Aide Name Role Phone Pcp, Unknown Primary Care Provider Unavailabl e Encounter Details Date Type Department Care Team (Late st Contact Info) Description 08/10/2024 Procedure Pass [facility], Ct Scan - [address] [address] Social History Tobacco Use Types Packs/Day Years [...] 08/10/2024 1:11 AM Abelardo Rondon RN * [place] Suicide Severity Rating Scale (Screener/Recent Self-Report) Question [...] on filedocumented in this encounter Care Teams Home Hospice Aide Relationship Specialty Start Date End Date Pcp, Unknown PCP - General 08/10/24 documented as of this encounter Additional Source Comments The information contained in this document represents components of the legal health record. It is not the complete legal health record.[facility]
--- OUTSIDE RECORDS SUMMARY | 2025-01-01 16:09 | XMS_ITS | Encounter Summary ---
Author Organization [facility] Address [address] [facility] [address] [place] [address] Phone Care Team Providers Care Honing Machine Operator Production Name Role Phone Pcp, Unknown Primary Care Provider Unavailabl e Encounter Details Date Type Department Care Team (Late st Contact Info) Description 08/10/2024 Procedure Pass [facility], Ct Scan - [address] [address] Social History Tobacco Use Types Packs/Day Years [...] 08/10/2024 1:11 AM Abelardo Rondon RN * [place] Suicide Severity Rating Scale (Screener/Recent Self-Report) Question [...] on filedocumented in this encounter Care Teams Honing Machine Operator Production Relationship Specialty Start Date End Date Pcp, Unknown PCP - General 08/10/24 documented as of this encounter Additional Source Comments The information contained in this document represents components of the legal health record. It is not the complete legal health record.[facility]
--- OUTSIDE RECORDS SUMMARY | 2025-01-01 16:09 | XMS_ITS | Clinical Summary ---
Author Organization [facility] Address [address] [place] [address] [place] [address] Phone Care Team Providers Care Acute Dialysis Nurse Name Role Phone Pcp, Unknown Primary Care Provider Unavailabl e Allergies No known active allergies Social History Tobacco Use Types Packs/Day Years [...] 2020 INFLUENZA VACCINE (#1) 2024 COVID-19 VACCINE (2024-2 6 season) 2024 HEPATITIS A VACCINES Aged Out [...] this topic Medical Devices Not on file Insurance [facility] HMO Care Teams Acute Dialysis Nurse Relationship Specialty Start Date End Date Pcp, Unknown PCP - General 08/10/24 Additional Source Comments The information contained in this document represents components of the legal health record. It is not the complete legal health record.[facility]
== END 2025-01-01 13:05 | disposition home or self-care (01) ==
LOC: HO.LAB 13:04
PROVIDERS: PCP Internal Medicine; Visit Provider Internal Medicine
DX: I10 Essential (primary) hypertension (principal); F41.1 Generalized anxiety disorder; F33.41 Major depressive disorder, recurrent, in partial remission; G47.9 Sleep disorder, unspecified; Z79.899 Other long term (current) drug therapy; Z98.84 Bariatric surgery status
CPT/HCPCS: 36415; 80053; 80061; 85025

== ENCOUNTER 2025-01-01 13:28 | Outpatient (AMB) | payer OTHER, SELFPAY ==
[2025-01-01 13:36] VITALS: BP 112/74; PULSE 73; O2SAT 97; BMI 39.7
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
== END 2025-01-01 14:01 | disposition home or self-care (01) ==
LOC: HO.HMCC 13:29
PROVIDERS: PCP Internal Medicine; Visit Provider Internal Medicine
DX: I10 Essential (primary) hypertension (principal); F41.1 Generalized anxiety disorder; F33.41 Major depressive disorder, recurrent, in partial remission; Z98.84 Bariatric surgery status; G47.9 Sleep disorder, unspecified